=== PATIENT | male | born 1950 | race Two or more races ===

== ENCOUNTER 2016-04-05 00:44 | Inpatient (IN) | payer MEDICARE ==
[~2016-04-05] VITALS: Ht 203.2 cm; Wt 90.7 kg
[2016-04-05] VITALS (9 sets, daily range): BP systolic 126–163; BP diastolic 61–138
[~2016-04-05 00:44] MED LIST: ALBUTEROL SULF8.5 GM INH; ASPIR-LOW81 MG ORAL; AZITHROMYCIN250 MG ORAL; BISACODYL5 MG ORAL; LANTUS SOL100 UNIT/1 SUBQ; LEVEMIR100 UNIT/1 SUBQ; LIPITOR40 MG ORAL; LISINOPRIL10 MG ORAL; METOPROLOL TART25 MG ORAL; PROBIOTIC & AC1 EAC1 PO; PROCHLORPERAZINE5 MG ORAL; PROTONIX40 MG ORAL; ZESTRIL10 M1 ORAL
[2016-04-05] MEDS ORDERED: Ipratropium 0.02% Inh Soln 2.5ml UD HHN ONE (01:00)
[2016-04-05] MEDS ORDERED: Diltiazem 25mg/5ml IV ONE (01:00)
[2016-04-05] MEDS ORDERED: Albuterol ud Inhalation HHN ONE (01:00)
[2016-04-05] MEDS ORDERED: Solu-MEDROL 125mg Inj IVP ONE (01:00)
[2016-04-05 01:27] LABS: MEAN CORPUSCULAR HEMOGLOBIN 26.5 PG (27.0-31.0); MEAN CORPUSCULAR HGB CONC 31.4 G/DL (32.0-36.0); MEAN CORPUSCULAR VOLUME 84 FL (80-99); MEAN PLATELET VOLUME 9.9 FL (6.5-10.1); PLATELET COUNT 262 K/UL (150-450); RED BLOOD COUNT 5.38 M/UL (4.70-6.10); RED CELL DISTRIBUTION WIDTH 15.1 % (11.6-14.8); WHITE BLOOD COUNT 20.3 K/UL (4.8-10.8)
[2016-04-05 01:30] LABS: ABG ALLEN TEST POSITIVE; ABG BASE EXCESS -3.7; ABG PCO2 50.8 mmHg (35.0-45.0)
[2016-04-05 01:31] LABS: APPEARANCE,URINE CLEAR; KETONES,URINE NEGATIVE (NEGATIVE); LEUKOCYTE ESTERASE ,URINE NEGATIVE (NEGATIVE); NITRITE,URINE NEGATIVE (NEGATIVE); PH,URINE 6 (4.5-8.0); PROTEIN,URINE 3+ (NEGATIVE); UROBILINOGEN,URINE NORMAL MG/DL (0.0-1.0)
[2016-04-05 01:39] LABS: INR 1.1 (0.9-1.1)
[2016-04-05 01:44] LABS: ALBUMIN/GLOBULIN RATIO 1.1 (1.0-2.7); CALCIUM 9.7 mg/dL (8.6-10.2); CREATININE 1.9 mg/dL (0.7-1.2); GLOMERULAR FILTRATION RATE 35.8 mL/min (>60); TOTAL PROTEIN 8.5 g/dL (6.6-8.7); TROPONIN I < 0.30 ng/mL (<=0.30)
[2016-04-05 01:51] LABS: WBC,URINE 0-2 /HPF (0 - 0)
[2016-04-05 01:52] LABS: BACTERIA,URINE FEW /HPF; SQUAMOUS EPITHELIAL CELL,UR OCCASIONAL /LPF (NONE/OCC)
[2016-04-05 01:55] LABS: CKMB 7.2 ng/mL (< 6.7)
[2016-04-05 03:12] LABS: REFLEX LACTIC ACID YES OR NO YES
--- NOTE | 2016-04-05 03:43 | Emergency Room Report ---
History of Present Illness General Chief Complaint: Dyspnea/Respdistress Source: Patient, Family Member, EMS Present Illness HPI This is a 65-year-old male with a history of COPD and sarcoidosis. He also has history of blood pressure. He had recent back surgery couple weeks ago. He was doing well until tonight. He started having some vomiting and coughing. He developed severe soreness of breath. He was very diaphoretic and unable to breathe. His called 911. EMS said he was tripoding and blood pressure was severely high. He was very diaphoretic. He was given nitroglycerin and placed on a CPaP. She denies any chest pain. Allergies: Coded Allergies: Dust (Unverified Allergy, Mild, runny nose, 07/31/14) Patient History Past Medical History: see triage record, old chart reviewed, HTN, COPD, pneumonia Past Surgical History: other - Back surgery Pertinent Family History: none Social History: Denies: smoking Immunizations: other Reviewed Nursing Documentation: PMH: Agreed, PSxH: Agreed Nursing Documentation-PMH Hx Cardiac Problems: Yes Hx Hypertension: Yes Hx Pacemaker: No Hx Asthma: Yes Hx COPD: No Hx Diabetes: Yes Hx Cancer: Yes - TESTICULAR CA 1990 Hx Gastrointestinal Problems: No Hx Dialysis: No Hx Neurological Problems: No Hx Cerebrovascular Accident: No Hx Seizures: No Review of Systems Eye: Denies: blurred vision, eye pain ENT: Denies: ear pain, nose congestion, throat swelling Respiratory: Reports: shortness of breath, Denies: cough Cardiovascular: Denies: chest pain, palpitations Gastrointestinal: Denies: abdominal pain, diarrhea, nausea, vomiting Musculoskeletal: Denies: back pain, joint pain Skin: Denies: rash Neurological: Denies: headache, numbness Endocrine: Denies: increased thirst, increased urine Hematologic/Lymphatic: Denies: easy bruising All Other Systems: negative except mentioned in HPI Physical Exam Vital Signs Date Time Temp Pulse Resp B/P Pulse Ox O2 Delivery O2 Flow Rate FiO2 04/05/16 00:47 96.4 154 36 253/122 100 Bi-pap 04/05/16 00:55 30 04/05/16 02:11 2.0 vitals with tachycardia, hypertension Sp02 EP Interpretation: abnormal General Appearance: severe distress Head: normocephalic, atraumatic Eyes: bilateral eye EOMI, bilateral eye PERRL ENT: hearing grossly normal, normal pharynx Neck: full range of motion, supple, no meningismus Respiratory: chest non-tender, decreased breath sounds, rales, rhonchi, wheezing Cardiovascular #1: regular rate, rhythm, no murmur, tachycardia Gastrointestinal: normal bowel sounds, non tender, no mass, no organomegaly, no bruit, non-distended Musculoskeletal: back normal, normal range of motion Neurologic: alert, oriented x3 Psychiatric: mood/affect normal Skin: diaphoresis Procedures Critical Care Time Critical Care Time Critical care is mandated in this patient who presented with severe respiratory distress. Patient require my urgent intervention to attenuate the risks of respiratory failure which may lead to cardiovascular collapse and . Critical care time is 35 minutes excluding any reportable procedure. Critical care time included evaluation, multiple reevaluation, looking at old charts, interpreting laboratory and diagnostic data, discussing case with patient and family and consultants, and charting. Medical Decision Making Diagnostic Impression: Primary Impression: Acute respiratory failure with hypoxemia Additional Impressions: Pneumonia Qualified Codes: J18.9 - Pneumonia, unspecified organism Sepsis Qualified Codes: A41.9 - Sepsis, unspecified organism Acute kidney failure Qualified Codes: N17.9 - Acute kidney failure, unspecified Proteinuria Hypertensive emergency Supraventricular tachycardia ER Course Patient presents with severe respiratory distress. He was very hypertensive and tachycardic. Patient said he has a history of irregular heartbeat in the past. Clinical picture appear to be more rapid A. fib with CHF. His BNP is normal but there is elevation of LFTs. This may be secondary to right-sided heart failure. First set of troponin negative. Patient said that his creatinine recently was 1.3. He also has a history of sarcoidosis. He greatly improved and able to be weaned off on BiPAP. I will in place him on antibiotics. Patient said that his ankle swell up with Levaquin. Will from the fluoroquinolone. He recently finished a course of Augmentin. This was a week ago. Lab Results Impression labs with leukocytosis. EKG Diagnostic Results Rate: normal, tachycardiac Rhythm: other - Supraventricular tachycardia ST Segments: no acute changes Rhythm Strip Diag. Results EP Interpretation: yes Rate: 103 Rhythm: NSR, no PVC's, no ectopy Chest X-Ray Diagnostic Results EP Interpretation: Yes Findings: no effusion, no pneumothorax, other - Bilateral hilar infiltrate. So congestion. Number of Views: 1 Last Vital Signs Date Time Temp Pulse Resp B/P Pulse Ox O2 Delivery O2 Flow Rate FiO2 04/05/16 02:30 2.0 04/05/16 02:11 102 18 98 28 04/05/16 01:30 135/69 Bi-pap 04/05/16 00:55 97.6 Status: improved Disposition: ADMITTED INPATIENT Condition: Serious Referrals: NOT CHOSEN IPA/,REFERRING (PCP) KALEIGH DELEON M.D. Apr 05, 2016 03:43
[2016-04-05] MEDS ORDERED: Azithromycin 500 MG in NS 275 ML IV ONE (03:45)
[2016-04-05] MEDS ORDERED: Piperacillin/Tazobactam 4.5 GM in NS 110 ML IVPB ONE (03:45)
[2016-04-05] MEDS ORDERED: Zosyn 4.5gm inj ONE (03:53)
[2016-04-05] MEDS ORDERED: Azithromycin Inj IV ONE (04:40)
[2016-04-05] MEDS ORDERED: SINGULAIR10 MG ORAL (05:08)
[2016-04-05] MEDS ORDERED: LOSARTAN POTASS25 M1 PO (05:08)
[2016-04-05] MEDS ORDERED: OXYCODONE-ACET1 EAC3 ORAL (05:08)
[2016-04-05] MEDS ORDERED: PULMICORT0.5 MG/2 M IH (05:08)
[2016-04-05] MEDS ORDERED: AMLODIPINE BESYL5 MG (06:16)
[2016-04-05] MEDS ORDERED: Oxycodone/Acetaminophen 5-325 ORAL PRN (06:45)
[2016-04-05] MEDS ORDERED: Morphine Sulfate 2mg/ml Inj IVP PRN (06:45)
[2016-04-05] MEDS ORDERED: DuoNeb 0.5-3(2.5)mg/3ml neb HHN PRN (06:45)
[2016-04-05] MEDS ORDERED: Promethazine/Codeine 5ml UD ORAL PRN (06:45)
[2016-04-05] MEDS ORDERED: Nitroglycerin Subl 0.4mg tab (Bottle Of 25) SL PRN (06:45)
[2016-04-05] MEDS ORDERED: LORazepam Inj 2mg/ml 1ml IV PRN (06:45)
[2016-04-05] MEDS ORDERED: Miralax 17gm pkt ORAL PRN (07:30)
[2016-04-05 08:01] LABS: ANISOCYTOSIS 1+; BAND NEUTROPHILS % (MANUAL) 4 % (0-8); BASOPHILS % (MANUAL) 0 % (0-2); EOSINOPHILS % (MANUAL) 4 % (0-3); LYMPHOCYTES % (MANUAL) 20 % (20-45); NEUTROPHILS % (MANUAL) 63 % (45-75); PLATELET ESTIMATE ADEQUATE; PLATELET MORPHOLOGY NORMAL; TOTAL CELLS COUNTED 100
--- NOTE | 2016-04-05 08:42 | Diagnostic Imaging Report ---
Clinical Indication: DYSPNEA, history of COPD and acidosis, vomiting and coughing Technique: Spiral acquisitions obtained through the chest. No IV contrast utilized, referring physician request. Multiplanar reconstructions generated. Total dose length product 669 mGycm. CTDIvol(s) 16 mGy Comparison: None Findings:There is a 5 mm nodule in the inferior right upper lobe image 28 series 5. This demonstrates some peripheral calcification but is not completely calcified. There is a 5 mm nodule in the inferior right lower lobe, image 34 series 5, which abuts the minor fissure. There is mild generalized bronchial wall thickening. There is filling of the lumina of several of the distal lower lobe bronchi, particularly on the left. Reticulonodular opacities are seen in the bilateral lower lobes, left greater than right There is thickening of the interstitial septa inferiorly. 7 mm nodule in the inferior left lower lobe, image 52 of series 5. There is variant anatomy of a left middle lobe. No focal airspace consolidation. No effusions or congestion. No large masses. There is mild pulmonary hyperinflation The heart size is normal. No pericardial effusion. There is fullness of the bilateral pulmonary hilar regions. The extent to which this represents prominent pulmonary arteries versus enlarged lymph nodes is not possible to assess given the absence of IV contrast administration. There is mediastinal lymphadenopathy with multiple enlarged nodes, including a prevascular space node that measures 3 x 1.5 cm, and a paratracheal node which measures 2.7 a 2.4 cm. Included portions of the thyroid are unremarkable. No axillary or chest wall mass or adenopathy. The bones are unremarkable. The included upper abdominal anatomy demonstrates a right upper pole 4 cm renal cyst. There may be gallbladder wall thickening, although this is less striking than seen on prior abdomen CT of 08/09/2014 Impression: Multiple small pulmonary nodules. The largest of these measures 7 mm in the inferior left lower lobe. If patient is at high risk for lung carcinoma, followup CT scanning at 3, 9, and 24 months is recommended. If patient is at low risk, then additional 6-12 month followup is recommended, followed by 18 to 24 month followup. This is per the Fleischner guidelines. Extensive mediastinal lymphadenopathy. Nonspecific, neoplasm not excludable There is also fullness of the bilateral pulmonary luis, but in the absence of IV contrast it is impossible to differentiate whether this represents lymphadenopathy versus prominent pulmonary arteries Generalized pulmonary hyperinflation. Generalized mild bronchial wall thickening, likely related to stated clinical history of COPD Reticular basilar interstitial disease on the right, reticulonodular disease on the left. Filling of multiple bronchi, particularly on the left. These are nonspecific findings, possibly related to COPD with superimposed acute bronchitis, but the differential is broad, including acute infectious processes, acute or chronic noninfectious inflammatory processes. Correlate with clinical findings. Note that the included lung bases on prior chest CT of 08/09/2014 did demonstrate some interstitial septal thickening, but the basilar nodular opacities and endoluminal bronchial filling is new or increased since that study Negative for significant airspace infiltrate Normal variant anatomy of left middle lobe Gallbladder wall thickening. Significance uncertain, described on prior ultrasound and CT exams Incidental finding right upper pole renal cyst The CT scanner at [facility] is accredited by the [employer] and the scans are performed using protocols designed to limit radiation exposure to as low as reasonably achievable to attain images of sufficient resolution adequate for diagnostic evaluation.
[2016-04-05] MEDS: Aspirin EC 81mg tab ORAL SCH (08:56)
[2016-04-05] MEDS: Theophylline ER 100mg ORAL SCH ×2 (08:56→21:40)
[2016-04-05] MEDS: Heparin 5000 units/ml inj SUBQ SCH ×2 (08:58→21:49)
[2016-04-05] MEDS ORDERED: Metoprolol 25mg tab ORAL SCH (09:00)
--- NOTE | 2016-04-05 11:09 | Diagnostic Imaging Report ---
Indication: SOB Technique: One view of the chest Comparison: 08/09/2014 Findings: There is bilateral perihilar and basilar interstitial prominence, slightly more striking than on the previous exam, somewhat less striking than seen on subsequent chest CT. No focal airspace consolidation. Heart size is normal. Pleural spaces are clear. Impression: Nonspecific bilateral perihilar and basilar interstitial disease. Please refer to subsequent chest CT for more detailed analysis Negative for airspace disease or pleural fluid
[2016-04-05] MEDS: NovoLOG Insulin Flexpen SUBQ SCH ×3 (11:44→21:48)
[2016-04-05] MEDS ORDERED: Solu-MEDROL 125mg Inj IV SCH (12:00)
--- NOTE | 2016-04-05 14:45 | Cardiology Report ---
APPROVED REPORT EKG Measurement Heart [id number] [place] [id number] Sin[address] Mark[address] ST abnormality, possible inferior subendocardial injury Abnormal ECG
--- NOTE | 2016-04-05 15:08 | History and Physical ---
History of Present Illness General Date patient seen: Apr 05, 2016 Reason for Hospitalization: Dyspnea/Respdistress Present Illness HPI 65-year-old male with a history of htn, recent back surgery, sinusitis, COPD and sarcoidosis was in his usual state of good health when he started with vomiting and coughing. He developed severe soreness of breath. He was very diaphoretic and unable to breathe. His called 911. EMS said he was tripoding and blood pressure was severely high. He was very diaphoretic. He was given nitroglycerin and placed on a CPAP. Pt's sbp on presentation was 250. He received diuretics, steroids and respiratory treatment in ER and felt slightly better. He is admitted for further evaluation. Currently his Dyspnea had decreased and he is wheezing much less. Allergies: Coded Allergies: Dust (Unverified Allergy, Mild, runny nose, 07/31/14) LEVOFLOXACIN (Verified Allergy, Unknown, 04/05/16) METOCLOPRAMIDE (Verified Allergy, Unknown, 04/05/16) Medication History Scheduled Albuterol Sulfate* (Albuterol Sulfate Mdi*), 2 PUFF INH Q6H Aspirin* (Aspir-Low*), 81 MG ORAL DAILY, (Reported) Atorvastatin Calcium* (Lipitor*), 40 MG ORAL BEDTIME, (Reported) Bisacodyl* (Dulcolax*), 10 MG ORAL THREE TIMES A WEEK, (Reported) Insulin Glargine (Lantus), 0 SUBQ BEDTIME, (Reported) Lisinopril* (Zestril*), 5 MG ORAL DAILY Metoprolol Tartrate* (Metoprolol Tartrate*), 25 MG ORAL BID, (Reported) Montelukast Sodium* (Singulair*), 10 MG ORAL BEDTIME, (Reported) Pantoprazole* (Protonix*), 40 MG ORAL DAILY Prochlorperazine Maleate* (Compazine*), 5 MG ORAL Q6H Scheduled PRN Oxycodone Hcl/Acetaminophen 5-325* (Oxycodone-Acetaminophen 5-325*), 1 TAB ORAL Q4H PRN for For Pain, (Reported) Miscellaneous Medications Amlodipine Besylate* (Amlodipine Besylate*), 5, (Reported) Budesonide (Pulmicort), Unknown Dose IH, (Reported) Losartan Potassium (Losartan Potassium), 25 MG PO, (Reported) Patient History Healthcare decision maker Resuscitation status Full Code Advanced Directive on File Past Medical/Surgical History Past Medical/Surgical History: (1) Sarcoidosis (2) Asthma (3) HTN (hypertension) Review of Systems Respiratory: Reports: SANZ, shortness of breath, wheezing All Other Systems: negative except mentioned in HPI Physical Exam General Appearance: WD/WN Lines, tubes and drains: peripheral, central line HEENT: normocephalic, anicteric Neck: non-tender, normal alignment Respiratory/Chest: chest wall non-tender, expiratory wheezing Cardiovascular/Chest: normal peripheral pulses, normal rate Abdomen: normal bowel sounds, non tender Genitourinary/Rectal: normal genital exam, normal rectal exam Extremities: normal range of motion, non-tender Last 24 Hour Vital Signs Date Time Temp Pulse Resp B/P Pulse Ox O2 Delivery O2 Flow Rate FiO2 04/05/16 12:00 92 04/05/16 11:38 97.2 90 18 129/67 96 Nasal Cannula 2.0 04/05/16 09:15 108 22 Nasal Cannula 2.0 28 04/05/16 08:57 109 126/61 04/05/16 08:57 109 126/61 04/05/16 08:00 109 04/05/16 07:59 97.3 109 20 126/61 96 Nasal Cannula 2.0 04/05/16 05:25 98.0 87 17 143/71 100 Nasal Cannula 2.0 04/05/16 05:14 98.0 87 17 143/71 100 Nasal Cannula 2.0 04/05/16 04:00 96 22 150/73 100 Room Air 04/05/16 02:30 92 21 147/75 99 Room Air 04/05/16 02:30 2.0 04/05/16 02:11 102 18 98 2.0 28 04/05/16 01:30 82 22 135/69 100 Bi-pap 30 04/05/16 01:30 124 25 100 Bi-pap 30 04/05/16 01:04 125 38 99 Bi-pap 30 04/05/16 01:04 125 38 30 04/05/16 01:02 125 38 99 Facial 30 04/05/16 01:00 144 163/138 04/05/16 00:55 30 04/05/16 00:55 97.6 144 22 163/138 100 Bi-pap 30 04/05/16 00:55 144 22 Bi-pap 30 04/05/16 00:47 96.4 154 36 253/122 100 Bi-pap Intake and Output 04/04/16 04/05/16 19:00 07:00 Intake Total 600 ml Output Total 1400 ml Balance -800 ml IV Total 600 ml Output Urine Total 1400 ml # Voids 1 Laboratory Tests Test 04/05/16 01:00 04/05/16 01:20 04/05/16 03:50 White Blood Count 20.3 K/UL (4.8-10.8) H Red Blood Count 5.38 M/UL (4.70-6.10) Hemoglobin 14.3 G/DL (14.2-18.0) Hematocrit 45.4 % (42.0-52.0) Mean Corpuscular Volume 84 FL (80-99) Mean Corpuscular Hemoglobin 26.5 PG (27.0-31.0) L Mean Corpuscular Hemoglobin Concent 31.4 G/DL (32.0-36.0) L Red Cell Distribution Width 15.1 % (11.6-14.8) H Platelet Count 262 K/UL (150-450) Mean Platelet Volume 9.9 FL (6.5-10.1) Neutrophils (%) (Auto) % (45.0-75.0) Lymphocytes (%) (Auto) % (20.0-45.0) Monocytes (%) (Auto) % (1.0-10.0) Eosinophils (%) (Auto) % (0.0-3.0) Basophils (%) (Auto) % (0.0-2.0) Differential Total Cells Counted 100 Neutrophils % (Manual) 63 % (45-75) Lymphocytes % (Manual) 20 % (20-45) Monocytes % (Manual) 9 % (1-10) Eosinophils % (Manual) 4 % (0-3) H Basophils % (Manual) 0 % (0-2) Band Neutrophils 4 % (0-8) Platelet Estimate Adequate Platelet Morphology Normal Anisocytosis 1+ Prothrombin Time 11.0 SEC (9.30-11.50) Prothromb Time International Ratio 1.1 (0.9-1.1) Activated Partial Thromboplast Time 25 SEC (23-33) Sodium Level 140 mEQ/L (135-145) Potassium Level 4.0 mEQ/L (3.4-4.9) Chloride Level 96 mEQ/L (98-107) L Carbon Dioxide Level 25 mEQ/L (20-30) Anion Gap 19 (5-15) H Blood Urea Nitrogen 31 mg/dL (7-23) H Creatinine 1.9 mg/dL (0.7-1.2) H Estimat Glomerular Filtration Rate 35.8 mL/min (>60) Glucose Level 289 mg/dL (74-106) H Lactic Acid Level 2.00 mmol/L (0.66-2.22) 1.40 mmol/L (0.66-2.22) Calcium Level 9.7 mg/dL (8.6-10.2) Total Bilirubin 0.3 mg/dL (0.0-1.2) Aspartate Amino Transf (AST/SGOT) 48 U/L (5-40) H Alanine Aminotransferase (ALT/SGPT) 43 U/L (3-41) H Alkaline Phosphatase 135 U/L (40-129) H Total Creatine Kinase 194 U/L (38-174) H Creatine Kinase MB 7.2 ng/mL (< 6.7) H Creatine Kinase MB Relative Index 3.7 Troponin I < 0.30 ng/mL (<=0.30) Pro-B-Type Natriuretic Peptide 25 pg/mL (0-125) Total Protein 8.5 g/dL (6.6-8.7) Albumin 4.5 g/dL (3.5-5.2) Globulin 4.0 g/dL Albumin/Globulin Ratio 1.1 (1.0-2.7) Urine Color Yellow Urine Appearance Clear Urine pH 6 (4.5-8.0) Urine Specific [place] 1.015 (1.005-1.035) Urine Protein 3+ (NEGATIVE) H Urine Glucose (UA) 3+ (NEGATIVE) H Urine Ketones Negative (NEGATIVE) Urine Occult Blood 2+ (NEGATIVE) H Urine Nitrite Negative (NEGATIVE) Urine Bilirubin Negative (NEGATIVE) Urine Urobilinogen Normal MG/DL (0.0-1.0) Urine Leukocyte Esterase Negative (NEGATIVE) Urine RBC 2-4 /HPF (0 - 0) H Urine WBC 0-2 /HPF (0 - 0) Urine Squamous Epithelial Cells Occasional /LPF Urine Bacteria Few /HPF (NONE) Arterial Blood pH 7.282 (7.350-7.450) Arterial Blood Partial Pressure CO2 50.8 mmHg (35.0-45.0) H Arterial Blood Partial Pressure O2 106.7 mmHg (75.0-100.0) H Arterial Blood HCO3 23.4 mmol/L (22.0-26.0) Arterial Blood Oxygen Saturation 97.2 % (92.0-98.0) Arterial Blood Base Excess -3.7 Bobby Test Positive Urine Opiates Screen Negative (NEGATIVE) Urine Barbiturates Screen Negative (NEGATIVE) Phencyclidine (PCP) Screen Negative (NEGATIVE) Urine Amphetamines Screen Negative (NEGATIVE) Urine Benzodiazepines Screen Negative (NEGATIVE) Urine Cocaine Screen Negative (NEGATIVE) Urine Marijuana (THC) Screen Negative (NEGATIVE) Height (Feet): 6 Height (Inches): 8.00 Weight (Pounds): 200 Medications Current Medications Medications (Trade) Dose Ordered Sig/Nallely Route PRN Reason Start Time Stop Time Status Last Admin Dose Admin Acetaminophen (Tylenol) 650 mg Q4H PRN ORAL fever 04/05/16 06:45 05/05/16 06:44 Albuterol/ Ipratropium (DuoNeb 0.5-3(2.5)mg/3ml) 3 ml Q4H PRN HHN dyspnea 04/05/16 06:45 04/10/16 06:44 Amlodipine Besylate (Norvasc) 5 mg DAILY ORAL 04/05/16 09:00 05/05/16 08:59 04/05/16 08:57 Aspirin (Ecotrin) 81 mg DAILY ORAL 04/05/16 09:00 05/05/16 08:59 04/05/16 08:56 Atorvastatin Calcium (Lipitor) 40 mg BEDTIME ORAL 04/05/16 21:00 05/05/16 20:59 Clonidine HCl (Catapres) 0.1 mg Q4H PRN ORAL sbp more than 160 04/05/16 06:45 05/05/16 06:44 Dextrose (Dextrose 50%) STAT PRN IV Hypoglycemia 04/05/16 06:45 05/05/16 06:44 Heparin Sodium (Porcine) (Heparin 5000 units/ml) 5,000 units EVERY 12 HOURS SUBQ 04/05/16 09:00 05/05/16 08:59 04/05/16 08:58 Insulin Aspart (NovoLOG) BEFORE MEALS AND HS SUBQ 04/05/16 11:30 05/05/16 11:29 04/05/16 11:44 Lorazepam (Ativan 2mg/ml 1ml) 0.5 mg Q4H PRN IV For Anxiety 04/05/16 06:45 04/12/16 06:44 Methylprednisolone Sodium Succinate (Solu-MEDROL) 60 mg EVERY 6 HOURS IV 04/05/16 12:00 05/05/16 11:59 04/05/16 11:47 Metoprolol Tartrate (Lopressor) 25 mg BID ORAL 04/05/16 09:00 05/05/16 08:59 04/05/16 08:57 Morphine Sulfate (Morphine Sulfate) 2 mg Q4H PRN IVP severe pain 7-10 04/05/16 06:45 04/12/16 06:44 Nitroglycerin (Ntg) 0.4 mg Q5M X 3 DOSES PRN SL Prn Chest Pain 04/05/16 06:45 05/05/16 06:44 Ondansetron HCl (Zofran) 4 mg Q6H PRN IVP Nausea & Vomiting 04/05/16 06:45 05/05/16 06:44 Oxycodone/ Acetaminophen (Percocet 5-325) 1 tab Q4H PRN ORAL For Pain 04/05/16 06:45 04/12/16 06:44 Pantoprazole (Protonix) 40 mg DAILY ORAL 04/05/16 09:00 05/05/16 08:59 04/05/16 08:57 Polyethylene Glycol (Miralax) 17 gm DAILYPRN PRN ORAL Constipation 04/05/16 07:30 05/05/16 07:29 Promethazine HCl/ Codeine (Phenergan with Codeine) 5 ml Q6H PRN ORAL cough 04/05/16 06:45 05/05/16 06:44 Temazepam (Restoril) 15 mg HSPRN PRN ORAL Insomnia 04/05/16 06:45 04/12/16 06:44 Theophylline (Jd-Dur) 100 mg EVERY 12 HOURS ORAL 04/05/16 09:00 05/05/16 08:59 04/05/16 08:56 Assessment/Plan Problem List: (1) Acute respiratory failure ICD Codes: J96.00 - Acute respiratory failure, unspecified whether with hypoxia or hypercapnia SNOMED: 97188315 (2) Bronchitis ICD Codes: J40 - Bronchitis, not specified as acute or chronic SNOMED: 93544793 (3) HTN (hypertension) ICD Codes: I10 - Essential (primary) hypertension SNOMED: 55856227 (4) Asthma ICD Codes: J45.909 - Unspecified asthma, uncomplicated SNOMED: 230704094 (5) Hypertensive emergency ICD Codes: I16.1 - Hypertensive emergency SNOMED: 668571859234459 (6) ATN (acute tubular necrosis) ICD Codes: N17.0 - ATN (acute tubular necrosis) SNOMED: 85232451 (7) Sarcoidosis ICD Codes: D86.9 - Sarcoidosis, unspecified SNOMED: 19099891 Assessment/Plan IV steroids IV antibiotics check sputum echo cardio evaluation monitor BP. JOANIE HERRERA Apr 05, 2016 15:08
--- NOTE | 2016-04-05 17:23 | Cardiology Report ---
APPROVED REPORT EXAM: Two-dimensional and M-mode echocardiogram with Doppler and color Doppler. INDICATION LV function Technically difficult study due to poor acoustical windows. Mainly only sub-costal views obtained. M-mode measurements of left ventricle not obtainable due to cardiac position (angle) Normal left ventricular chamber size, systolic function and wall motion to extent visualized. Left ventricular ejection fraction estimated to be 65-70 %. Study quality precludes accurate assessment of regional wall motion. Mild left ventricular hypertrophy by 2-D. No evidence of pericardial effusion. All other cardiac chambers appear normal sizes. Focal aortic valve sclerosis with adequate cusp excursion. Thickened mitral valve leaflets with normal excursion. Mitral annulus and aortic root calcification. Normal pulmonic valve structure. Normal tricuspid valve structure. IVC at normal size with physiologic collapse. A color flow and spectral Doppler study was performed and revealed: Trace mitral regurgitation. Mitral diastolic velocities suggest reduced left ventricular relaxation c/w mild LV diastolic dysfunction (Grade I ). Trace tricuspid regurgitation. Tricuspid systolic velocities suggests peak right ventricular systolic pressure of 13 mmHg.
--- NOTE | 2016-04-05 17:55 | Cardiology Progress Note ---
Assessment/Plan Assessment/Plan profound htn respiratory insuf sarcodosis systemic cad hx of stent in d2 per pt (no chest pain, but left arm and shoulder pain ) dm htn asthma hs ot testicular cancer cri with an acute component profound sinus tachy probnp only 25 unlikey to have had diastolid failure has sig findign on chest ct may be related to sarcoid some finding arenew since 2015 echo normla wall motion no perfusion defect in 2015 here sinsu tachy has improved watch cr avoid diuretics pulm rxn repeat ekg adn trop [id number] Objective Last 24 Hour Vital Signs Date Time Temp Pulse Resp B/P Pulse Ox O2 Delivery O2 Flow Rate FiO2 04/05/16 17:14 105 22 98 Nasal Cannula 2.0 28 04/05/16 17:00 100 38 96 Nasal Cannula 2.0 28 04/05/16 12:00 92 04/05/16 11:38 97.2 90 18 129/67 96 Nasal Cannula 2.0 04/05/16 09:15 108 22 Nasal Cannula 2.0 28 04/05/16 08:57 109 126/61 04/05/16 08:57 109 126/61 04/05/16 08:00 109 04/05/16 07:59 97.3 109 20 126/61 96 Nasal Cannula 2.0 04/05/16 05:25 98.0 87 17 143/71 100 Nasal Cannula 2.0 04/05/16 05:14 98.0 87 17 143/71 100 Nasal Cannula 2.0 04/05/16 04:00 96 22 150/73 100 Room Air 04/05/16 02:30 92 21 147/75 99 Room Air 04/05/16 02:30 2.0 04/05/16 02:11 102 18 98 2.0 28 04/05/16 01:30 82 22 135/69 100 Bi-pap 30 04/05/16 01:30 124 25 100 Bi-pap 30 04/05/16 01:04 125 38 99 Bi-pap 30 04/05/16 01:04 125 38 30 04/05/16 01:02 125 38 99 Facial 30 04/05/16 01:00 144 163/138 04/05/16 00:55 30 04/05/16 00:55 97.6 144 22 163/138 100 Bi-pap 30 04/05/16 00:55 144 22 Bi-pap 30 04/05/16 00:47 96.4 154 36 253/122 100 Bi-pap Intake and Output 04/04/16 04/05/16 19:00 07:00 Intake Total 600 ml Output Total 1400 ml Balance -800 ml IV Total 600 ml Output Urine Total 1400 ml # Voids 1 Laboratory Tests Test 04/05/16 01:00 04/05/16 01:20 04/05/16 03:50 White Blood Count 20.3 K/UL (4.8-10.8) H Red Blood Count 5.38 M/UL (4.70-6.10) Hemoglobin 14.3 G/DL (14.2-18.0) Hematocrit 45.4 % (42.0-52.0) Mean Corpuscular Volume 84 FL (80-99) Mean Corpuscular Hemoglobin 26.5 PG (27.0-31.0) L Mean Corpuscular Hemoglobin Concent 31.4 G/DL (32.0-36.0) L Red Cell Distribution Width 15.1 % (11.6-14.8) H Platelet Count 262 K/UL (150-450) Mean Platelet Volume 9.9 FL (6.5-10.1) Neutrophils (%) (Auto) % (45.0-75.0) Lymphocytes (%) (Auto) % (20.0-45.0) Monocytes (%) (Auto) % (1.0-10.0) Eosinophils (%) (Auto) % (0.0-3.0) Basophils (%) (Auto) % (0.0-2.0) Differential Total Cells Counted 100 Neutrophils % (Manual) 63 % (45-75) Lymphocytes % (Manual) 20 % (20-45) Monocytes % (Manual) 9 % (1-10) Eosinophils % (Manual) 4 % (0-3) H Basophils % (Manual) 0 % (0-2) Band Neutrophils 4 % (0-8) Platelet Estimate Adequate Platelet Morphology Normal Anisocytosis 1+ Prothrombin Time 11.0 SEC (9.30-11.50) Prothromb Time International Ratio 1.1 (0.9-1.1) Activated Partial Thromboplast Time 25 SEC (23-33) Sodium Level 140 mEQ/L (135-145) Potassium Level 4.0 mEQ/L (3.4-4.9) Chloride Level 96 mEQ/L (98-107) L Carbon Dioxide Level 25 mEQ/L (20-30) Anion Gap 19 (5-15) H Blood Urea Nitrogen 31 mg/dL (7-23) H Creatinine 1.9 mg/dL (0.7-1.2) H Estimat Glomerular Filtration Rate 35.8 mL/min (>60) Glucose Level 289 mg/dL (74-106) H Lactic Acid Level 2.00 mmol/L (0.66-2.22) 1.40 mmol/L (0.66-2.22) Calcium Level 9.7 mg/dL (8.6-10.2) Total Bilirubin 0.3 mg/dL (0.0-1.2) Aspartate Amino Transf (AST/SGOT) 48 U/L (5-40) H Alanine Aminotransferase (ALT/SGPT) 43 U/L (3-41) H Alkaline Phosphatase 135 U/L (40-129) H Total Creatine Kinase 194 U/L (38-174) H Creatine Kinase MB 7.2 ng/mL (< 6.7) H Creatine Kinase MB Relative Index 3.7 Troponin I < 0.30 ng/mL (<=0.30) Pro-B-Type Natriuretic Peptide 25 pg/mL (0-125) Total Protein 8.5 g/dL (6.6-8.7) Albumin 4.5 g/dL (3.5-5.2) Globulin 4.0 g/dL Albumin/Globulin Ratio 1.1 (1.0-2.7) Urine Color Yellow Urine Appearance Clear Urine pH 6 (4.5-8.0) Urine Specific [place] 1.015 (1.005-1.035) Urine Protein 3+ (NEGATIVE) H Urine Glucose (UA) 3+ (NEGATIVE) H Urine Ketones Negative (NEGATIVE) Urine Occult Blood 2+ (NEGATIVE) H Urine Nitrite Negative (NEGATIVE) Urine Bilirubin Negative (NEGATIVE) Urine Urobilinogen Normal MG/DL (0.0-1.0) Urine Leukocyte Esterase Negative (NEGATIVE) Urine RBC 2-4 /HPF (0 - 0) H Urine WBC 0-2 /HPF (0 - 0) Urine Squamous Epithelial Cells Occasional /LPF Urine Bacteria Few /HPF (NONE) Arterial Blood pH 7.282 (7.350-7.450) Arterial Blood Partial Pressure CO2 50.8 mmHg (35.0-45.0) H Arterial Blood Partial Pressure O2 106.7 mmHg (75.0-100.0) H Arterial Blood HCO3 23.4 mmol/L (22.0-26.0) Arterial Blood Oxygen Saturation 97.2 % (92.0-98.0) Arterial Blood Base Excess -3.7 Bobby Test Positive Urine Opiates Screen Negative (NEGATIVE) Urine Barbiturates Screen Negative (NEGATIVE) Phencyclidine (PCP) Screen Negative (NEGATIVE) Urine Amphetamines Screen Negative (NEGATIVE) Urine Benzodiazepines Screen Negative (NEGATIVE) Urine Cocaine Screen Negative (NEGATIVE) Urine Marijuana (THC) Screen Negative (NEGATIVE) MORENA NORWOOD Apr 05, 2016 17:55
[2016-04-05] MEDS ORDERED: Solu-MEDROL 40mg Inj IVP SCH (21:00)
--- NOTE | 2016-04-05 21:39 | Consultation ---
DATE OF CONSULTATION: 04/05/2016 ADDENDUM: ASSESSMENT AND PLAN: 1. Hypertensive urgency with profound elevated blood pressure and symptoms suggestive of failure. 2. Profound degree of sinus tachycardia. 3. Sarcoidosis. 4. Pulmonary intraluminal filling. 5. Diabetes mellitus. 6. Hypertension. 7. Previous history of coronary artery disease. 8. Renal insufficiency history. 9. History of testicular cancer, status post resection. 10. Asthma with probable exacerbation. This patient has been admitted to the hospital. CT scan findings were significance somewhere changed from his prior CT scan in 2014. He does have a history of sarcoidosis. His blood pressure is much better, controlled at the present time. He still has some pulmonary findings that is difficult to tell how much is his findings are chronic and how much is new. His blood pressure is much better controlled. His shortness of breath has improved. His normal proBNP in light of the renal insufficiency is certainly goes against a heart failure as a symptom. He does have a history of coronary disease. He has never had chest pain with his coronary event, although he did have left arm and shoulder pain and previously he has not had experienced those symptoms at this time therefore doubt that is the coronary syndrome. His creatinine is up from 1.4 to 1.9. The patient should be continued on his blood pressure medications and adjustment in medications as become necessary for control of the blood pressure. Continue breathing treatments and treatment of his underlying pulmonary issues including infectious etiologies. I will follow the patient along with you. It is of note that the patient had perfusion imaging back in 2014 that showed no evidence of ischemia. Adam Mcclure M.D. DR: RAVI JOB#: [id number] CC:
--- NOTE | 2016-04-05 23:09 | Consultation ---
DATE OF CONSULTATION: 04/05/2016 REFERRING PHYSICIAN: Tata Donato M.D. REASON FOR REFERRAL: Shortness of breath, possible congestive heart failure. HISTORY OF PRESENT ILLNESS: This is a 65-year-old gentleman, who has history of multiple medical problems as delineated below. The patient does have a history of asthma and had use of inhalers. Has been waking up at night because of shortness of breath. He uses inhalers at times to go back to sleep. Yesterday, he started having symptoms during the day time, has a hard time walking around because of significant amount of shortness of breath and climbed up hill. Vomited on several occasions and had to open the doors, windows and go outside to get some fresh air, but he has remained short of breath despite using inhalers as it usually helps him as well as he is diaphoretic. He called the paramedics and paramedics brought him to the emergency room at [facility]. Paramedics found him to have to be in mild respiratory distress. Complained of shortness of breath at times for one hour. They gave him some albuterol and CPAP and the patient improved. He has noticed himself at home that his heart rate in excess of 130. He was noted to be 154 to 159 by the paramedics. No blood pressure documented by patient intake coordinator run sheet, but apparently he had significantly elevated blood pressure with blood pressures in the 250s range when he arrived here. He has been given treatment. He is improved much since prior to his admission. He never had any pain or pressure in his chest. He did not have any left arm or left neck pain as he has had with his prior myocardial event. He does use two pillows. He does have occasional dizziness and lightheadedness on standing which, he attributes to his blood pressure medications and occasional palpitations. PAST MEDICAL HISTORY: Positive for history of diabetes. He has high blood pressure. He had a history of heart attack, which he had a stent placed in the second diagonal and at that time was left shoulder, left arm, and left neck pain. No chest pain at that time. He has a history of testicular cancer that was resected. He has never had a stroke. No hepatitis or tuberculosis. He does have history of asthma. No emphysema. No history of ulcers. He does have chronic renal insufficiency. Creatinine 1.4. No liver problems. No thyroid problems. No anemia. He does have some arthritis. He has had sarcoidosis systemic involving the GI tract as well as other organ systems. No blood clots and no HIV or prostate problems. ALLERGIES: He is allergic to Levaquin and Reglan. He is intolerant of steroids because of hyperglycemia apparently. SOCIAL HISTORY: He used to use drugs as a young man, but not for many years. No alcohol. No tobacco. REVIEW OF SYSTEMS: Gastrointestinal: He has had nausea and vomiting. No diarrhea. No bloody stools or black tarry. Genitourinary: Negative. Pulmonary: Positive for coughing and wheezing. Constitutional: No fever, chills, or night sweats. Neurologic: Negative. PHYSICAL EXAMINATION: GENERAL: A tall middle-aged gentleman, in no apparent respiratory distress. HEENT: Unremarkable. NECK: Supple. No jugular venous distention. LUNGS: Decreased breath sounds noted bilaterally. No crackles are noted. CARDIAC: Regular rate and rhythm. No heaves, thrills, or gallops noted. ABDOMEN: Soft and nontender. Positive bowel sounds. EXTREMITIES: Trace edema, lower extremities bilaterally. NEUROLOGIC: He is awake, alert, responsive, and in no apparent respiratory distress. Laboratory And Diagnostic Data: White count of 20.2 with hemoglobin 14.3, and platelet count of 262,000. His blood gas, pH is 7.28, pCO2 51, pO2 of 107, bicarbonate 23, and O2 saturation 97%. His sodium is 140, potassium 4.0, chloride 96, bicarbonate 25, BUN 31, creatinine 1.9, and glucose of 289. Lactic acid level 2 and 1.4 subsequently. Calcium is 9.7. AST and ALT 48 and 43 and alkaline phosphatase is 135. CPK 194. Troponin less than 0.03. ProBNP is only 25. Albumin of 4.5. His INR was 1.0 and PTT of 25. He did have a CT scan of the chest performed, that CT scan showed multiple small pulmonary nodules noted. Extensive mediastinal lymphadenopathy. Nonspecific bilateral pulmonary luis. Generalized pulmonary hyperinflation. interstitial disease. He has had endoluminal bronchial fillings, which are new compared to his prior EKG and CT scan of July of 2014. No significant airspace infiltrates. Gallbladder wall thickening being noted. He did have an echocardiogram that was performed shows technically difficult study. Ejection fraction 65 to 70%. Mild diastolic relaxation abnormalities. Pulmonary artery systolic pressure is only estimated at 13. He had electrocardiogram that was performed showing, what appears to be, profound degree of sinus tachycardia and atrial tachycardia with 2:1 block is not completely excluded of the EKG with heart rates in the 153 range. Subsequently, his heart rate did improve with heart rate of 131, clearly sinus tachycardia on that EKG. ASSESSMENT AND PLAN: INCOMPLETE DICTATION Adam Mcclure M.D. DR: DANIEL JOB#: [id number] CC:
[2016-04-06] VITALS: BP 137/73
[2016-04-06 04:00] VITALS: BP 135/71
[2016-04-06] MEDS: NovoLOG Insulin Flexpen SUBQ SCH ×4 (06:35→21:42)
[2016-04-06] MEDS ORDERED: Promethazine/Codeine 5ml UD ORAL PRN (06:45)
[2016-04-06 07:01] LABS: MEAN CORPUSCULAR HEMOGLOBIN 26.6 PG (27.0-31.0); MEAN CORPUSCULAR HGB CONC 32.3 G/DL (32.0-36.0); MEAN CORPUSCULAR VOLUME 82 FL (80-99); MEAN PLATELET VOLUME 9.3 FL (6.5-10.1); PLATELET COUNT 229 K/UL (150-450); RED BLOOD COUNT 4.42 M/UL (4.70-6.10); RED CELL DISTRIBUTION WIDTH 14.9 % (11.6-14.8); WHITE BLOOD COUNT 14.8 K/UL (4.8-10.8)
[2016-04-06 07:33] LABS: TROPONIN I < 0.30 ng/mL (<=0.30)
[2016-04-06 07:36] LABS: ALBUMIN/GLOBULIN RATIO 0.9 (1.0-2.7); CALCIUM 8.6 mg/dL (8.6-10.2); CREATININE 1.6 mg/dL (0.7-1.2); GLOMERULAR FILTRATION RATE 43.6 mL/min (>60); POTASSIUM 4.7 mEQ/L (3.4-4.9); TOTAL PROTEIN 6.4 g/dL (6.6-8.7)
--- NOTE | 2016-04-06 08:38 | Pulmonology Progress Note ---
Assessment/Plan Assessment/Plan ASSESSMENT acute hypoxemic hypercapnic respiratory failure requiring BIPAP,- PNA vs bronchitis pulmonary nodules extensive mediastinal LAD CORBIN/ATN Hypertensive urgency with profound elevated blood pressure and asthma exacerbation Hx of sarcoidosis hx of CAD DM elevated LFT hx of testicular Ca PLAN OF CARE tele O2 HHN IV steroids and taper sputum cx if able empiric antibiotic CXR with nonspecific bilateral perihilar and basilar interstitial disease CT chest -multiple small pulmonary nodules, Extensive mediastinal lymphadenopathy-nonspecific, likely related to hx of sarcoidosis, old recommend repeat CT chest in 3 months ( higher risk) fup with CXR today cardio follows ECHO with preserved EF 65-70% and RVSP of 13 continue ASA, statin BP management with BB and CCB, optimize as needed DVT, GI prophylaxis creat trending down LFT down to normal keep on tele, still tachy case discussed and evaluated by supervising physician Subjective Allergies: Coded Allergies: Dust (Unverified Allergy, Mild, runny nose, 07/31/14) LEVOFLOXACIN (Verified Allergy, Unknown, 04/05/16) METOCLOPRAMIDE (Verified Allergy, Unknown, 04/05/16) Subjective leukocytosis trending down,afebrile creat down to 1.6 walked along the hallway and HR up to 130, reports being tired after brisk walk Objective Last 24 Hour Vital Signs Date Time Temp Pulse Resp B/P Pulse Ox O2 Delivery O2 Flow Rate FiO2 04/06/16 04:00 97.5 92 16 135/71 97 Nasal Cannula 2.0 04/06/16 04:00 96 04/06/16 00:00 92 04/06/16 00:00 98.2 93 16 137/73 95 Nasal Cannula 2.0 04/05/16 20:00 99.1 100 20 141/79 96 Nasal Cannula 2.0 04/05/16 19:40 108 22 Nasal Cannula 2.0 28 04/05/16 19:35 103 04/05/16 17:14 105 22 98 Nasal Cannula 2.0 28 04/05/16 17:00 100 38 96 Nasal Cannula 2.0 28 04/05/16 16:00 98.2 102 18 130/71 96 Nasal Cannula 2.0 04/05/16 16:00 93 04/05/16 12:00 92 04/05/16 11:38 97.2 90 18 129/67 96 Nasal Cannula 2.0 04/05/16 09:15 108 22 Nasal Cannula 2.0 28 04/05/16 08:57 109 126/61 04/05/16 08:57 109 126/61 Intake and Output 04/05/16 04/06/16 19:00 07:00 Intake Total 240 ml 240 ml Output Total 300 ml 300 ml Balance -60 ml -60 ml Intake Oral 240 ml 240 ml Output Urine Total 300 ml 300 ml # Voids 1 1 General Appearance: WD/WN, no acute distress HEENT: normocephalic, atraumatic, anicteric, mucous membranes moist Respiratory/Chest: lungs clear, no respiratory distress, no accessory muscle use Cardiovascular: normal peripheral pulses, normal rate, regular rhythm - SR on tele, after walking ST in 130 Abdomen: normal bowel sounds, soft, non tender, non distended Genitourinary: normal external genitalia Extremities: no edema Neurologic/Psychiatric: no motor/sensory deficits, alert, oriented x 3, responsive Lymphatic: no neck adenopathy Musculoskeletal: normal muscle bulk Laboratory Tests 04/06/16 06:51: White Blood Count 14.8H, Red Blood Count 4.42L, Hemoglobin 11.7L, Hematocrit 36.4L, Mean Corpuscular Volume 82, Mean Corpuscular Hemoglobin 26.6L, Mean Corpuscular Hemoglobin Concent 32.3, Red Cell Distribution Width 14.9H, Platelet Count 229, Mean Platelet Volume 9.3, Neutrophils (%) (Auto) , Lymphocytes (%) (Auto) , Monocytes (%) (Auto) , Eosinophils (%) (Auto) , Basophils (%) (Auto) , Neutrophils % (Manual) [Pending], Lymphocytes % (Manual) [Pending], Platelet Estimate [Pending], Platelet Morphology [Pending], Sodium Level 137, Potassium Level 4.7, Chloride Level 96L, Carbon Dioxide Level 25, Anion Gap 16H, Blood Urea Nitrogen 35H, Creatinine 1.6H, Estimat Glomerular Filtration Rate 43.6, Glucose Level 258H, Calcium Level 8.6, Total Bilirubin 0.4 , Aspartate Amino Transf (AST/SGOT) 26, Alanine Aminotransferase (ALT/SGPT) 26, Alkaline Phosphatase 79, Troponin I < 0.30, Pro-B-Type Natriuretic Peptide 347H , Total Protein 6.4L, Albumin 3.1L, Globulin 3.3, Albumin/Globulin Ratio 0.9L Current Medications Medications (Trade) Dose Ordered Sig/Nallely Route PRN Reason Start Time Stop Time Status Last Admin Dose Admin Acetaminophen (Tylenol) 650 mg Q4H PRN ORAL fever 04/05/16 06:45 05/05/16 06:44 Albuterol/ Ipratropium (DuoNeb 0.5-3(2.5)mg/3ml) 3 ml Q4H PRN HHN dyspnea 04/05/16 06:45 04/10/16 06:44 04/05/16 17:12 Amlodipine Besylate (Norvasc) 5 mg DAILY ORAL 04/05/16 09:00 05/05/16 08:59 04/05/16 08:57 Aspirin (Ecotrin) 81 mg DAILY ORAL 04/05/16 09:00 05/05/16 08:59 04/05/16 08:56 Atorvastatin Calcium (Lipitor) 40 mg BEDTIME ORAL 04/05/16 21:00 05/05/16 20:59 04/05/16 21:41 Clonidine HCl (Catapres) 0.1 mg Q4H PRN ORAL sbp more than 160 04/05/16 06:45 05/05/16 06:44 Dextrose (Dextrose 50%) STAT PRN IV Hypoglycemia 04/05/16 06:45 05/05/16 06:44 Heparin Sodium (Porcine) (Heparin 5000 units/ml) 5,000 units EVERY 12 HOURS SUBQ 04/05/16 09:00 05/05/16 08:59 04/05/16 21:49 Insulin Aspart (NovoLOG) BEFORE MEALS AND HS SUBQ 04/05/16 11:30 05/05/16 11:29 04/06/16 06:35 Lorazepam (Ativan 2mg/ml 1ml) 0.5 mg Q4H PRN IV For Anxiety 04/05/16 06:45 04/12/16 06:44 Methylprednisolone Sodium Succinate (Solu-MEDROL) 40 mg EVERY 12 HOURS IVP 04/05/16 21:00 05/05/16 20:59 04/05/16 21:40 Morphine Sulfate (Morphine Sulfate) 2 mg Q4H PRN IVP severe pain 7-10 04/05/16 06:45 04/12/16 06:44 Nitroglycerin (Ntg) 0.4 mg Q5M X 3 DOSES PRN SL Prn Chest Pain 04/05/16 06:45 05/05/16 06:44 Ondansetron HCl (Zofran) 4 mg Q6H PRN IVP Nausea & Vomiting 04/05/16 06:45 05/05/16 06:44 Oxycodone/ Acetaminophen (Percocet 5-325) 1 tab Q4H PRN ORAL For Pain 04/05/16 06:45 04/12/16 06:44 Pantoprazole (Protonix) 40 mg DAILY ORAL 04/05/16 09:00 05/05/16 08:59 04/05/16 08:57 Polyethylene Glycol (Miralax) 17 gm DAILYPRN PRN ORAL Constipation 04/05/16 07:30 05/05/16 07:29 Promethazine HCl/ Codeine (Phenergan with Codeine) 5 ml Q4H PRN ORAL For Cough 04/06/16 06:45 05/06/16 06:44 Temazepam (Restoril) 15 mg HSPRN PRN ORAL Insomnia 04/05/16 06:45 04/12/16 06:44 Theophylline (Jd-Dur) 100 mg EVERY 12 HOURS ORAL 04/05/16 09:00 05/05/16 08:59 04/05/16 21:40 [facility] [place] Re[place] NP Apr 06, 2016 08:38
[2016-04-06] MEDS: Aspirin EC 81mg tab ORAL SCH (09:11)
[2016-04-06] MEDS: Theophylline ER 100mg ORAL SCH ×2 (09:11→21:40)
[2016-04-06] MEDS: Heparin 5000 units/ml inj SUBQ SCH ×2 (09:15→21:41)
[2016-04-06 09:36] LABS: LYMPHOCYTES % (MANUAL) 12 % (20-45); NEUTROPHILS % (MANUAL) 86 % (45-75); TOTAL CELLS COUNTED 100
[2016-04-06 09:37] LABS: BAND NEUTROPHILS % (MANUAL) 0 % (0-8); BASOPHILS % (MANUAL) 0 % (0-2); EOSINOPHILS % (MANUAL) 0 % (0-3); PLATELET ESTIMATE ADEQUATE; PLATELET MORPHOLOGY NORMAL
[2016-04-06] MEDS: Cefepime HCl 1 GM in D5W 55 ML IVPB SCH ×2 (10:36→21:40)
--- NOTE | 2016-04-06 11:01 | Diagnostic Imaging Report ---
Indication: Dyspnea Comparison: 04/05/2016 A single view chest radiograph was obtained. Findings: No definite infiltrate or pulmonary vascular congestion identified. Edema seen on the prior day has improved and essentially resolved. The heart is normal in size. The aorta is mildly enlarged consistent with atherosclerotic vascular disease. The bones are osteopenic. Impression: No acute disease
[2016-04-06 12:15] VITALS: BP 145/77
[2016-04-06 16:00] VITALS: BP 140/77
--- NOTE | 2016-04-06 17:03 | Cardiology Progress Note ---
Assessment/Plan Assessment/Plan reviewed his ecgt and echo discussed with the patient, no evbidence of ACS Subjective Subjective the patient feels much better today less dyspnea denies chest pain Objective Last 24 Hour Vital Signs Date Time Temp Pulse Resp B/P Pulse Ox O2 Delivery O2 Flow Rate FiO2 04/06/16 12:15 98.3 90 21 145/77 99 Nasal Cannula 2.0 04/06/16 12:00 87 04/06/16 09:11 96 135/71 04/06/16 08:00 93 04/06/16 06:57 Nasal Cannula 2.0 04/06/16 06:56 97 Nasal Cannula 2.0 04/06/16 06:50 89 20 Nasal Cannula 2.0 04/06/16 04:00 97.5 92 16 135/71 97 Nasal Cannula 2.0 04/06/16 04:00 96 04/06/16 00:00 92 04/06/16 00:00 98.2 93 16 137/73 95 Nasal Cannula 2.0 04/05/16 20:00 99.1 100 20 141/79 96 Nasal Cannula 2.0 04/05/16 19:40 108 22 Nasal Cannula 2.0 28 04/05/16 19:35 103 04/05/16 17:14 105 22 98 Nasal Cannula 2.0 28 General Appearance: mild distress EENT: PERRL/EOMI Neck: no JVD Rhythm: NSR Cardiovascular: normal rate Respiratory/Chest: crackles/rales, rhonchi - bilaterally Abdomen: soft Extremities: no swelling Pulses: decreased: PT (R) 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 normal Intake and Output 04/05/16 04/06/16 19:00 07:00 Intake Total 240 ml 240 ml Output Total 300 ml 300 ml Balance -60 ml -60 ml Intake Oral 240 ml 240 ml Output Urine Total 300 ml 300 ml # Voids 1 1 Laboratory Tests Test 04/06/16 06:51 White Blood Count 14.8 K/UL (4.8-10.8) H Red Blood Count 4.42 M/UL (4.70-6.10) L Hemoglobin 11.7 G/DL (14.2-18.0) L Hematocrit 36.4 % (42.0-52.0) L Mean Corpuscular Volume 82 FL (80-99) Mean Corpuscular Hemoglobin 26.6 PG (27.0-31.0) L Mean Corpuscular Hemoglobin Concent 32.3 G/DL (32.0-36.0) Red Cell Distribution Width 14.9 % (11.6-14.8) H Platelet Count 229 K/UL (150-450) Mean Platelet Volume 9.3 FL (6.5-10.1) Neutrophils (%) (Auto) % (45.0-75.0) Lymphocytes (%) (Auto) % (20.0-45.0) Monocytes (%) (Auto) % (1.0-10.0) Eosinophils (%) (Auto) % (0.0-3.0) Basophils (%) (Auto) % (0.0-2.0) Differential Total Cells Counted 100 Neutrophils % (Manual) 86 % (45-75) H Lymphocytes % (Manual) 12 % (20-45) L Monocytes % (Manual) 2 % (1-10) Eosinophils % (Manual) 0 % (0-3) Basophils % (Manual) 0 % (0-2) Band Neutrophils 0 % (0-8) Platelet Estimate Adequate Platelet Morphology Normal Red Blood Cell Morphology Normal Sodium Level 137 mEQ/L (135-145) Potassium Level 4.7 mEQ/L (3.4-4.9) Chloride Level 96 mEQ/L (98-107) L Carbon Dioxide Level 25 mEQ/L (20-30) Anion Gap 16 (5-15) H Blood Urea Nitrogen 35 mg/dL (7-23) H Creatinine 1.6 mg/dL (0.7-1.2) H Estimat Glomerular Filtration Rate 43.6 mL/min (>60) Glucose Level 258 mg/dL (74-106) H Calcium Level 8.6 mg/dL (8.6-10.2) Total Bilirubin 0.4 mg/dL (0.0-1.2) Aspartate Amino Transf (AST/SGOT) 26 U/L (5-40) Alanine Aminotransferase (ALT/SGPT) 26 U/L (3-41) Alkaline Phosphatase 79 U/L (40-129) Troponin I < 0.30 ng/mL (<=0.30) Pro-B-Type Natriuretic Peptide 347 pg/mL (0-125) H Total Protein 6.4 g/dL (6.6-8.7) L Albumin 3.1 g/dL (3.5-5.2) L Globulin 3.3 g/dL Albumin/Globulin Ratio 0.9 (1.0-2.7) L Microbiology Date/Time Source Procedure Growth Status 04/05/16 01:00 Blood Blood Culture - Preliminary NO GROWTH AFTER 24 HOURS Resulted 04/05/16 00:45 Blood Blood Culture - Preliminary NO GROWTH AFTER 24 HOURS Resulted 04/05/16 10:00 Sputum Gram Stain - Final Resulted 04/05/16 10:00 Sputum Sputum Culture - Preliminary NORMAL UPPER RESPIRATORY KATELYNN AT 24 ... Resulted CLAU AGUILERA Apr 06, 2016 17:03
[2016-04-06 19:00] VITALS: BP 158/78
[2016-04-07] VITALS: BP 146/86
[2016-04-07 04:00] VITALS: BP 139/79
[2016-04-07 05:59] LABS: BASOPHILS % (AUTO) 0.7 % (0.0-2.0); EOSINOPHILS % (AUTO) 3.1 % (0.0-3.0); LYMPHOCYTES % (AUTO) 20.2 % (20.0-45.0); MEAN CORPUSCULAR HEMOGLOBIN 26.7 PG (27.0-31.0); MEAN CORPUSCULAR HGB CONC 32.2 G/DL (32.0-36.0); MEAN CORPUSCULAR VOLUME 83 FL (80-99); MEAN PLATELET VOLUME 9.7 FL (6.5-10.1); MONOCYTES % (AUTO) 7.5 % (1.0-10.0); NEUTROPHILS % (AUTO) 68.5 % (45.0-75.0); PLATELET COUNT 222 K/UL (150-450); RED BLOOD COUNT 4.57 M/UL (4.70-6.10); RED CELL DISTRIBUTION WIDTH 14.8 % (11.6-14.8); WHITE BLOOD COUNT 10.1 K/UL (4.8-10.8)
[2016-04-07 06:07] LABS: CALCIUM 8.9 mg/dL (8.6-10.2); CREATININE 1.4 mg/dL (0.7-1.2); GLOMERULAR FILTRATION RATE 50.9 mL/min (>60); POTASSIUM 4.5 mEQ/L (3.4-4.9)
[2016-04-07] MEDS: NovoLOG Insulin Flexpen SUBQ SCH ×4 (06:37→20:45)
[2016-04-07 08:00] VITALS: BP 143/83
[2016-04-07] MEDS: Aspirin EC 81mg tab ORAL SCH (08:18)
[2016-04-07] MEDS: Theophylline ER 100mg ORAL SCH ×2 (08:18→20:36)
[2016-04-07] MEDS: Cefepime HCl 1 GM in D5W 55 ML IVPB SCH ×2 (08:20→20:51)
[2016-04-07] MEDS: Heparin 5000 units/ml inj SUBQ SCH ×2 (08:23→20:55)
[2016-04-07] MEDS ORDERED: Solu-MEDROL 40mg Inj IVP SCH (09:00)
--- NOTE | 2016-04-07 10:50 | Pulmonology Progress Note ---
Assessment/Plan Assessment/Plan ASSESSMENT acute hypoxemic hypercapnic respiratory failure requiring BIPAP,- PNA vs bronchitis pulmonary nodules extensive mediastinal LAD CORBIN/ATN ( element of prerenal) on CRI ( 2 to diabetic nephropathy) Hypertensive urgency with profound elevated blood pressure and asthma exacerbation Hx of sarcoidosis hx of CAD DM elevated LFT hx of testicular Ca PLAN OF CARE tele O2 HHN taper IV steroids sputum cx if able empiric antibiotic CXR with nonspecific bilateral perihilar and basilar interstitial disease CT chest -multiple small pulmonary nodules, Extensive mediastinal lymphadenopathy-nonspecific, likely related to hx of sarcoidosis, old recommend repeat CT chest in 3 months ( higher risk) fup CXR 04/06 - no acute disease cardio follows ECHO with preserved EF 65-70% and RVSP of 13 continue ASA, statin BP management with BB and CCB, optimize as needed BS management with SS of insulin DVT, GI prophylaxis creat trending down, likely ATN on CRI 2 to diabetic nephropathy nephro follows LFT down to normal transfer to [place] if ok with cardio dc plan soon case discussed and evaluated by supervising physician Subjective Allergies: Coded Allergies: Dust (Unverified Allergy, Mild, runny nose, 07/31/14) LEVOFLOXACIN (Verified Allergy, Unknown, 04/05/16) METOCLOPRAMIDE (Verified Allergy, Unknown, 04/05/16) Subjective leukocytosis t resolved, afebrile creat down to 1.4 tired, did not sleep at night denies chest pain, SOB Objective Last 24 Hour Vital Signs Date Time Temp Pulse Resp B/P Pulse Ox O2 Delivery O2 Flow Rate FiO2 04/07/16 08:19 88 143/83 04/07/16 08:00 103 04/07/16 08:00 98.1 88 18 143/83 98 Nasal Cannula 2.0 04/07/16 04:00 97.8 81 19 139/79 99 Nasal Cannula 2.0 04/07/16 04:00 90 04/07/16 00:00 98.1 94 20 146/86 97 Nasal Cannula 2.0 04/06/16 23:44 91 04/06/16 20:00 92 04/06/16 19:18 99 Nasal Cannula 2.0 28 04/06/16 19:18 Nasal Cannula 2.0 28 04/06/16 19:18 90 20 Nasal Cannula 2.0 04/06/16 19:00 96.7 91 20 158/78 99 Nasal Cannula 2.0 04/06/16 16:00 88 04/06/16 16:00 97.7 86 18 140/77 100 Nasal Cannula 2.0 04/06/16 12:15 98.3 90 21 145/77 99 Nasal Cannula 2.0 04/06/16 12:00 87 Intake and Output 04/06/16 04/07/16 19:00 07:00 Intake Total 590 ml 900 ml Balance 590 ml 900 ml Intake Oral 480 ml 900 ml IV Total 110 ml # Voids 2 6 Objective General Appearance: WD/WN, no acute distress HEENT: normocephalic, atraumatic, anicteric, mucous membranes moist Respiratory/Chest: lungs clear, no respiratory distress, no accessory muscle use Cardiovascular: normal peripheral pulses, normal rate, regular rhythm - SR on tele, after walking ST in 130 Abdomen: normal bowel sounds, soft, non tender, non distended Genitourinary: normal external genitalia Extremities: no edema Neurologic/Psychiatric: no motor/sensory deficits, alert, oriented x 3, responsive Lymphatic: no neck adenopathy Musculoskeletal: normal muscle bulk Microbiology Date/Time Source Procedure Growth Status 04/05/16 01:00 Blood Blood Culture - Preliminary NO GROWTH AFTER 48 HOURS Resulted 04/05/16 00:45 Blood Blood Culture - Preliminary NO GROWTH AFTER 48 HOURS Resulted 04/05/16 10:00 Sputum Gram Stain - Final Resulted 04/05/16 10:00 Sputum Sputum Culture - Preliminary NORMAL UPPER RESPIRATORY KATELYNN AT 24 ... Resulted Laboratory Tests 04/07/16 04:50: White Blood Count 10.1, Red Blood Count 4.57L, Hemoglobin 12.2L, Hematocrit 37.8L, Mean Corpuscular Volume 83, Mean Corpuscular Hemoglobin 26.7L, Mean Corpuscular Hemoglobin Concent 32.2, Red Cell Distribution Width 14.8, Platelet Count 222, Mean Platelet Volume 9.7, Neutrophils (%) (Auto) 68.5, Lymphocytes (% ) (Auto) 20.2, Monocytes (%) (Auto) 7.5, Eosinophils (%) (Auto) 3.1H, Basophils (%) (Auto) 0.7, Sodium Level 138, Potassium Level 4.5, Chloride Level 98, Carbon Dioxide Level 28, Anion Gap 12, Blood Urea Nitrogen 29H, Creatinine 1.4H , Estimat Glomerular Filtration Rate 50.9, Glucose Level 212H, Calcium Level 8.9 Current Medications Medications (Trade) Dose Ordered Sig/Nallely Route PRN Reason Start Time Stop Time Status Last Admin Dose Admin Acetaminophen (Tylenol) 650 mg Q4H PRN ORAL fever 04/05/16 06:45 05/05/16 06:44 Albuterol/ Ipratropium (DuoNeb 0.5-3(2.5)mg/3ml) 3 ml Q4H PRN HHN dyspnea 04/05/16 06:45 04/10/16 06:44 04/05/16 17:12 Amlodipine Besylate (Norvasc) 5 mg DAILY ORAL 04/05/16 09:00 05/05/16 08:59 04/07/16 08:19 Aspirin (Ecotrin) 81 mg DAILY ORAL 04/05/16 09:00 05/05/16 08:59 04/07/16 08:18 Atorvastatin Calcium (Lipitor) 40 mg BEDTIME ORAL 04/05/16 21:00 05/05/16 20:59 04/06/16 21:40 Cefepime HCl/ Dextrose (Maxipime/D5W) 55 ml @ 110 mls/hr EVERY 12 HOURS IVPB 04/06/16 10:30 04/13/16 10:29 04/07/16 08:20 Cetirizine HCl (ZyrTEC) 10 mg DAILY ORAL 04/07/16 09:00 05/07/16 08:59 04/07/16 08:18 Clonidine HCl (Catapres) 0.1 mg Q4H PRN ORAL sbp more than 160 04/05/16 06:45 05/05/16 06:44 Dextrose (Dextrose 50%) STAT PRN IV Hypoglycemia 04/05/16 06:45 05/05/16 06:44 Heparin Sodium (Porcine) (Heparin 5000 units/ml) 5,000 units EVERY 12 HOURS SUBQ 04/05/16 09:00 05/05/16 08:59 04/07/16 08:23 Insulin Aspart (NovoLOG) BEFORE MEALS AND HS SUBQ 04/05/16 11:30 05/05/16 11:29 04/07/16 06:37 Lorazepam (Ativan 2mg/ml 1ml) 0.5 mg Q4H PRN IV For Anxiety 04/05/16 06:45 04/12/16 06:44 Methylprednisolone Sodium Succinate 40 mg 40 mg DAILY IVP 04/07/16 09:00 05/07/16 08:59 04/07/16 08:20 Morphine Sulfate (Morphine Sulfate) 2 mg Q4H PRN IVP severe pain 7-10 04/05/16 06:45 04/12/16 06:44 Nitroglycerin (Ntg) 0.4 mg Q5M X 3 DOSES PRN SL Prn Chest Pain 04/05/16 06:45 05/05/16 06:44 Ondansetron HCl (Zofran) 4 mg Q6H PRN IVP Nausea & Vomiting 04/05/16 06:45 05/05/16 06:44 Oxycodone/ Acetaminophen (Percocet 5-325) 1 tab Q4H PRN ORAL For Pain 04/05/16 06:45 04/12/16 06:44 Pantoprazole (Protonix) 40 mg DAILY ORAL 04/05/16 09:00 05/05/16 08:59 04/07/16 08:18 Polyethylene Glycol (Miralax) 17 gm DAILYPRN PRN ORAL Constipation 04/05/16 07:30 05/05/16 07:29 04/07/16 08:32 Promethazine HCl/ Codeine (Phenergan with Codeine) 5 ml Q4H PRN ORAL For Cough 04/06/16 06:45 05/06/16 06:44 Temazepam (Restoril) 15 mg HSPRN PRN ORAL Insomnia 04/05/16 06:45 04/12/16 06:44 Theophylline (Jd-Dur) 100 mg EVERY 12 HOURS ORAL 04/05/16 09:00 05/05/16 08:59 04/07/16 08:18 R[facility] RodriguezMount Vernon HospitalJuliet Reilly NP Apr 07, 2016 10:50
[2016-04-07 11:43] VITALS: BP 134/85
--- NOTE | 2016-04-07 12:59 | Consultation ---
Consult Note Consult Note asked to eval for renal failure This is a 65-year-old male with a history of COPD and sarcoidosis. He also has history of blood pressure. He had recent back surgery couple weeks ago. He was doing well until tonight. He started having some vomiting and coughing. He developed severe soreness of breath. He was very diaphoretic and unable to breathe. His called 911. EMS said he was tripoding and blood pressure was severely high. He was very diaphoretic. He was given nitroglycerin and placed on a CPaP. She denies any chest pain. Past Medical History: see triage record, old chart reviewed, HTN, COPD, pneumonia Past Surgical History: other - Back surgery Coded Allergies: Dust (Unverified Allergy, Mild, runny nose, 07/31/14) LEVOFLOXACIN (Verified Allergy, Unknown, 04/05/16) METOCLOPRAMIDE (Verified Allergy, Unknown, 04/05/16) Hx Cardiac Problems: Yes Hx Hypertension: Yes Hx Pacemaker: No Hx Asthma: Yes Hx Diabetes: Yes Hx Cancer: Yes - TESTICULAR CA 1990 patient examined- interviewed- data reviewed Assessment/Plan Renal: Acute renal failure- Pre renal superimposed on renal- Cr lowering 1.9 to 1.4 Hypertensive urgency with profound elevated blood pressure- h/o DM Other: acute hypoxemic hypercapnic respiratory failure requiring BIPAP,- PNA vs bronchitis pulmonary nodules extensive mediastinal LAD asthma exacerbation Hx of sarcoidosis hx of CAD elevated LFT hx of testicular Ca Plan: Slow hydrate- Monitor renal parameters- Avoid nephrotoxics- Optimize pulmonary status- Taper steroids- LAUREANO SORIANO Apr 07, 2016 12:59
[2016-04-07 16:00] VITALS: BP 126/76
--- NOTE | 2016-04-07 16:13 | Cardiology Progress Note ---
Assessment/Plan Assessment/Plan reviewed his ecg and echo discussed with the patient, no evidence of ACS Subjective Subjective tdoing better still has cough dyspnea is much better no chest pain Objective Last 24 Hour Vital Signs Date Time Temp Pulse Resp B/P Pulse Ox O2 Delivery O2 Flow Rate FiO2 04/07/16 12:00 94 04/07/16 11:43 97.7 94 19 134/85 98 Nasal Cannula 2.0 04/07/16 08:19 88 143/83 04/07/16 08:00 103 04/07/16 08:00 98.1 88 18 143/83 98 Nasal Cannula 2.0 04/07/16 07:05 Nasal Cannula 2.0 28 04/07/16 07:05 99 Nasal Cannula 2.0 28 04/07/16 07:05 94 20 Nasal Cannula 2.0 28 04/07/16 04:00 97.8 81 19 139/79 99 Nasal Cannula 2.0 04/07/16 04:00 90 04/07/16 00:00 98.1 94 20 146/86 97 Nasal Cannula 2.0 04/06/16 23:44 91 04/06/16 20:00 92 04/06/16 19:18 99 Nasal Cannula 2.0 28 04/06/16 19:18 Nasal Cannula 2.0 28 04/06/16 19:18 90 20 Nasal Cannula 2.0 04/06/16 19:00 96.7 91 20 158/78 99 Nasal Cannula 2.0 General Appearance: mild distress EENT: PERRL/EOMI Neck: supple, no JVD Rhythm: NSR Cardiovascular: normal rate Respiratory/Chest: rhonchi - bilaterally Abdomen: soft Extremities: non-tender, no swelling Intake and Output 04/06/16 04/07/16 19:00 07:00 Intake Total 590 ml 900 ml Balance 590 ml 900 ml Intake Oral 480 ml 900 ml IV Total 110 ml # Voids 2 6 Laboratory Tests Test 04/07/16 04:50 04/07/16 15:30 White Blood Count 10.1 K/UL (4.8-10.8) Red Blood Count 4.57 M/UL (4.70-6.10) L Hemoglobin 12.2 G/DL (14.2-18.0) L Hematocrit 37.8 % (42.0-52.0) L Mean Corpuscular Volume 83 FL (80-99) Mean Corpuscular Hemoglobin 26.7 PG (27.0-31.0) L Mean Corpuscular Hemoglobin Concent 32.2 G/DL (32.0-36.0) Red Cell Distribution Width 14.8 % (11.6-14.8) Platelet Count 222 K/UL (150-450) Mean Platelet Volume 9.7 FL (6.5-10.1) Neutrophils (%) (Auto) 68.5 % (45.0-75.0) Lymphocytes (%) (Auto) 20.2 % (20.0-45.0) Monocytes (%) (Auto) 7.5 % (1.0-10.0) Eosinophils (%) (Auto) 3.1 % (0.0-3.0) H Basophils (%) (Auto) 0.7 % (0.0-2.0) Sodium Level 138 mEQ/L (135-145) Potassium Level 4.5 mEQ/L (3.4-4.9) Chloride Level 98 mEQ/L (98-107) Carbon Dioxide Level 28 mEQ/L (20-30) Anion Gap 12 (5-15) Blood Urea Nitrogen 29 mg/dL (7-23) H Creatinine 1.4 mg/dL (0.7-1.2) H Estimat Glomerular Filtration Rate 50.9 mL/min (>60) Glucose Level 212 mg/dL (74-106) H Calcium Level 8.9 mg/dL (8.6-10.2) Urine Eosinophils Pending Urine Random Sodium Pending Microbiology Date/Time Source Procedure Growth Status 04/05/16 01:00 Blood Blood Culture - Preliminary NO GROWTH AFTER 48 HOURS Resulted 04/05/16 00:45 Blood Blood Culture - Preliminary NO GROWTH AFTER 48 HOURS Resulted 04/05/16 10:00 Sputum Gram Stain - Final Complete 04/05/16 10:00 Sputum Sputum Culture - Final NORMAL UPPER RESPIRATORY KATELYNN PRESENT Complete CLAU AGUILERA Apr 07, 2016 16:13
[2016-04-07] MEDS: DuoNeb 0.5-3(2.5)mg/3ml neb HHN SCH ×2 (19:41→23:07)
[2016-04-07 20:00] VITALS: BP 121/68
[2016-04-08] MEDS: DuoNeb 0.5-3(2.5)mg/3ml neb HHN SCH ×4 (02:22→15:58)
[2016-04-08 04:30] VITALS: BP 142/81
[2016-04-08 06:02] VITALS: BP 142/81
[2016-04-08] MEDS: NovoLOG Insulin Flexpen SUBQ SCH ×3 (06:09→17:17)
[2016-04-08 07:06] LABS: BASOPHILS % (AUTO) 1.2 % (0.0-2.0); EOSINOPHILS % (AUTO) 3.6 % (0.0-3.0); LYMPHOCYTES % (AUTO) 21.6 % (20.0-45.0); MEAN CORPUSCULAR HEMOGLOBIN 26.9 PG (27.0-31.0); MEAN CORPUSCULAR HGB CONC 32.4 G/DL (32.0-36.0); MEAN CORPUSCULAR VOLUME 83 FL (80-99); MEAN PLATELET VOLUME 9.8 FL (6.5-10.1); MONOCYTES % (AUTO) 8.2 % (1.0-10.0); NEUTROPHILS % (AUTO) 65.4 % (45.0-75.0); PLATELET COUNT 214 K/UL (150-450); RED BLOOD COUNT 4.54 M/UL (4.70-6.10); RED CELL DISTRIBUTION WIDTH 14.8 % (11.6-14.8)
[2016-04-08 07:14] LABS: HEMOGLOBIN A1C 9.3 % (< 6.0)
[2016-04-08 07:31] LABS: CHOLESTEROL/HDL RATIO 2.6 (3.3-4.4); CREATININE 1.6 mg/dL (0.7-1.2); CRP QUANT 1.2 mg/dL (< 0.5); GLOMERULAR FILTRATION RATE 43.6 mL/min (>60); MAGNESIUM 1.9 mg/dL (1.7-2.5); PHOSPHORUS 3.1 mg/dL (2.5-4.8); POTASSIUM 4.6 mEQ/L (3.4-4.9); TOTAL PROTEIN 6.6 g/dL (6.6-8.7); URIC ACID 5.1 mg/dL (3.0-7.5)
[2016-04-08 07:37] LABS: THYROID STIMULATING HORMONE 2.06 uIU/mL (0.300-4.500)
[2016-04-08 08:26] VITALS: BP 135/72
[2016-04-08] MEDS: Aspirin EC 81mg tab ORAL SCH (08:58)
[2016-04-08] MEDS: Cefepime HCl 1 GM in D5W 55 ML IVPB SCH (08:59)
[2016-04-08] MEDS: Theophylline ER 100mg ORAL SCH (08:59)
[2016-04-08] MEDS ORDERED: Solu-MEDROL 40mg Inj IVP SCH (09:00)
[2016-04-08] MEDS: Heparin 5000 units/ml inj SUBQ SCH (09:06)
[2016-04-08 12:39] VITALS: BP 147/75
--- NOTE | 2016-04-08 15:13 | General Progress Note ---
Assessment/Plan Status: stable, other - clinically improved Assessment/Plan Status: Acute renal failure- Pre renal superimposed on renal- Cr lowering 1.9 to 1.4 again up to 1.6 Hypertensive urgency with profound elevated blood pressure- h/o DM Other: acute hypoxemic hypercapnic respiratory failure requiring BIPAP,- PNA vs bronchitis pulmonary nodules extensive mediastinal LAD asthma exacerbation Hx of sarcoidosis hx of CAD elevated LFT hx of testicular Ca Plan: Slow hydrate- Monitor renal parameters- Avoid nephrotoxics- Optimize pulmonary status- Taper steroids- Subjective ROS Limited/Unobtainable: No Constitutional: Reports: malaise Allergies: Coded Allergies: Dust (Unverified Allergy, Mild, runny nose, 07/31/14) LEVOFLOXACIN (Verified Allergy, Unknown, 04/05/16) METOCLOPRAMIDE (Verified Allergy, Unknown, 04/05/16) Objective Last 24 Hour Vital Signs Date Time Temp Pulse Resp B/P Pulse Ox O2 Delivery O2 Flow Rate FiO2 04/08/16 12:39 97.0 89 18 147/75 100 Nasal Cannula 2.0 04/08/16 12:00 84 04/08/16 11:29 Room Air 04/08/16 11:29 Room Air 04/08/16 08:59 77 135/72 04/08/16 08:26 97.2 77 18 135/72 99 Nasal Cannula 2.0 04/08/16 08:00 84 04/08/16 07:21 Nasal Cannula 2.0 28 04/08/16 07:21 84 20 100 Nasal Cannula 2.0 28 04/08/16 07:12 78 20 100 Nasal Cannula 2.0 28 04/08/16 07:10 100 Nasal Cannula 2.0 28 04/08/16 06:02 96.8 78 20 142/81 97 Room Air 04/08/16 04:30 96.8 78 20 142/81 97 Room Air 04/08/16 03:52 79 04/08/16 02:24 Nasal Cannula 04/08/16 02:23 Nasal Cannula 04/07/16 23:45 92 04/07/16 23:15 99 22 100 Nasal Cannula 2.0 28 04/07/16 23:07 99 24 97 Nasal Cannula 2.0 28 04/07/16 20:00 98.1 87 18 121/68 100 Nasal Cannula 2.0 04/07/16 19:52 86 04/07/16 19:49 98 22 100 Nasal Cannula 2.0 28 04/07/16 19:44 Nasal Cannula 2.0 28 04/07/16 19:43 98 Nasal Cannula 2.0 28 04/07/16 19:41 96 24 98 Nasal Cannula 2.0 28 04/07/16 16:00 96.8 92 20 126/76 Room Air 04/07/16 16:00 92 Intake and Output 04/07/16 04/08/16 19:00 07:00 Intake Total 790 ml 55 ml Output Total 700 ml 1135 ml Balance 90 ml -1080 ml Intake Oral 680 ml IV Total 110 ml 55 ml Output Urine Total 700 ml 1135 ml # Voids 2 Laboratory Tests 04/07/16 15:30: Urine Eosinophils None seen, Urine Random Sodium 75 04/08/16 06:30: White Blood Count 8.0, Red Blood Count 4.54L, Hemoglobin 12.2L, Hematocrit 37.7L , Mean Corpuscular Volume 83, Mean Corpuscular Hemoglobin 26.9L, Mean Corpuscular Hemoglobin Concent 32.4, Red Cell Distribution Width 14.8, Platelet Count 214, Mean Platelet Volume 9.8, Neutrophils (%) (Auto) 65.4, Lymphocytes (% ) (Auto) 21.6, Monocytes (%) (Auto) 8.2, Eosinophils (%) (Auto) 3.6H, Basophils (%) (Auto) 1.2, Sodium Level 136, Potassium Level 4.6, Chloride Level 95L, Carbon Dioxide Level 32H, Anion Gap 9, Blood Urea Nitrogen 26H, Creatinine 1.6H , Estimat Glomerular Filtration Rate 43.6, Glucose Level 248H, Hemoglobin A1c 9.3H, Uric Acid 5.1, Calcium Level 9.0, Phosphorus Level 3.1, Magnesium Level 1.9, Total Bilirubin 0.5, Gamma Glutamyl Transpeptidase 61, Aspartate Amino Transf (AST/SGOT) 17, Alanine Aminotransferase (ALT/SGPT) 22, Alkaline Phosphatase 82, C-Reactive Protein, Quantitative 1.2H, Pro-B-Type Natriuretic Peptide 72, Total Protein 6.6, Albumin 3.4L, Globulin 3.2, Albumin/Globulin Ratio 1.0, Triglycerides Level 79, Cholesterol Level 157, LDL Cholesterol 81, HDL Cholesterol 60, Cholesterol/HDL Ratio 2.6L, Thyroid Stimulating Hormone (TSH ) 2.060 Height (Feet): 6 Height (Inches): 8.00 Weight (Pounds): 200 General Appearance: other Cardiovascular: normal rate Respiratory/Chest: decreased breath sounds Objective other physical exam not changed LAUREANO SORIANO Apr 08, 2016 15:13
[2016-04-08 16:00] VITALS: BP 145/85
--- NOTE | 2016-04-08 16:06 | Pulmonology Progress Note ---
Assessment/Plan Problems: (1) Acute respiratory failure (2) Bronchitis (3) HTN (hypertension) (4) Asthma (5) Hypertensive emergency (6) ATN (acute tubular necrosis) (7) Sarcoidosis Assessment/Plan improving taper steroids dc home with nebulizer sputum negative d/w Dr. Nolan pts primary Subjective Interval Events: feeling much better Allergies: Coded Allergies: Dust (Unverified Allergy, Mild, runny nose, 07/31/14) LEVOFLOXACIN (Verified Allergy, Unknown, 04/05/16) METOCLOPRAMIDE (Verified Allergy, Unknown, 04/05/16) Objective Last 24 Hour Vital Signs Date Time Temp Pulse Resp B/P Pulse Ox O2 Delivery O2 Flow Rate FiO2 04/08/16 15:58 81 20 100 Nasal Cannula 2.0 28 04/08/16 15:49 74 20 100 Nasal Cannula 2.0 28 04/08/16 12:39 97.0 89 18 147/75 100 Nasal Cannula 2.0 04/08/16 12:00 84 04/08/16 11:29 Room Air 04/08/16 11:29 Room Air 04/08/16 08:59 77 135/72 04/08/16 08:26 97.2 77 18 135/72 99 Nasal Cannula 2.0 04/08/16 08:00 84 04/08/16 07:21 Nasal Cannula 2.0 28 04/08/16 07:21 84 20 100 Nasal Cannula 2.0 28 04/08/16 07:12 78 20 100 Nasal Cannula 2.0 28 04/08/16 07:10 100 Nasal Cannula 2.0 28 04/08/16 06:02 96.8 78 20 142/81 97 Room Air 04/08/16 04:30 96.8 78 20 142/81 97 Room Air 04/08/16 03:52 79 04/08/16 02:24 Nasal Cannula 04/08/16 02:23 Nasal Cannula 04/07/16 23:45 92 04/07/16 23:15 99 22 100 Nasal Cannula 2.0 28 04/07/16 23:07 99 24 97 Nasal Cannula 2.0 28 04/07/16 20:00 98.1 87 18 121/68 100 Nasal Cannula 2.0 04/07/16 19:52 86 04/07/16 19:49 98 22 100 Nasal Cannula 2.0 28 04/07/16 19:44 Nasal Cannula 2.0 28 04/07/16 19:43 98 Nasal Cannula 2.0 28 04/07/16 19:41 96 24 98 Nasal Cannula 2.0 28 Intake and Output 04/07/16 04/08/16 19:00 07:00 Intake Total 790 ml 55 ml Output Total 700 ml 1135 ml Balance 90 ml -1080 ml Intake Oral 680 ml IV Total 110 ml 55 ml Output Urine Total 700 ml 1135 ml # Voids 2 General Appearance: cachetic HEENT: normocephalic Respiratory/Chest: chest wall non-tender Cardiovascular: normal peripheral pulses, normal rate Abdomen: normal bowel sounds, soft, non tender Extremities: no cyanosis 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 Laboratory Tests 04/08/16 06:30: White Blood Count 8.0, Red Blood Count 4.54L, Hemoglobin 12.2L, Hematocrit 37.7L , Mean Corpuscular Volume 83, Mean Corpuscular Hemoglobin 26.9L, Mean Corpuscular Hemoglobin Concent 32.4, Red Cell Distribution Width 14.8, Platelet Count 214, Mean Platelet Volume 9.8, Neutrophils (%) (Auto) 65.4, Lymphocytes (% ) (Auto) 21.6, Monocytes (%) (Auto) 8.2, Eosinophils (%) (Auto) 3.6H, Basophils (%) (Auto) 1.2, Sodium Level 136, Potassium Level 4.6, Chloride Level 95L, Carbon Dioxide Level 32H, Anion Gap 9, Blood Urea Nitrogen 26H, Creatinine 1.6H , Estimat Glomerular Filtration Rate 43.6, Glucose Level 248H, Hemoglobin A1c 9.3H, Uric Acid 5.1, Calcium Level 9.0, Phosphorus Level 3.1, Magnesium Level 1.9, Total Bilirubin 0.5, Gamma Glutamyl Transpeptidase 61, Aspartate Amino Transf (AST/SGOT) 17, Alanine Aminotransferase (ALT/SGPT) 22, Alkaline Phosphatase 82, C-Reactive Protein, Quantitative 1.2H, Pro-B-Type Natriuretic Peptide 72, Total Protein 6.6, Albumin 3.4L, Globulin 3.2, Albumin/Globulin Ratio 1.0, Triglycerides Level 79, Cholesterol Level 157, LDL Cholesterol 81, HDL Cholesterol 60, Cholesterol/HDL Ratio 2.6L, Thyroid Stimulating Hormone (TSH ) 2.060 Current Medications Medications (Trade) Dose Ordered Sig/Nallely Route PRN Reason Start Time Stop Time Status Last Admin Dose Admin Acetaminophen (Tylenol) 650 mg Q4H PRN ORAL fever 04/05/16 06:45 05/05/16 06:44 Albuterol/ Ipratropium (DuoNeb 0.5-3(2.5)mg/3ml) 3 ml Q4H PRN HHN dyspnea 04/05/16 06:45 04/10/16 06:44 04/05/16 17:12 Albuterol/ Ipratropium (DuoNeb 0.5-3(2.5)mg/3ml) 3 ml Q4HRT HHN 04/07/16 19:00 04/12/16 18:59 04/08/16 15:58 Amlodipine Besylate (Norvasc) 5 mg DAILY ORAL 04/05/16 09:00 05/05/16 08:59 04/08/16 08:59 Aspirin (Ecotrin) 81 mg DAILY ORAL 04/05/16 09:00 05/05/16 08:59 04/08/16 08:58 Atorvastatin Calcium (Lipitor) 40 mg BEDTIME ORAL 04/05/16 21:00 05/05/16 20:59 04/07/16 20:35 Cefepime HCl/ Dextrose (Maxipime/D5W) 55 ml @ 110 mls/hr EVERY 12 HOURS IVPB 04/06/16 10:30 04/13/16 10:29 04/08/16 08:59 Cetirizine HCl (ZyrTEC) 10 mg DAILY ORAL 04/07/16 09:00 05/07/16 08:59 04/08/16 08:59 Clonidine HCl (Catapres) 0.1 mg Q4H PRN ORAL sbp more than 160 04/05/16 06:45 05/05/16 06:44 Dextrose (Dextrose 50%) STAT PRN IV Hypoglycemia 04/05/16 06:45 05/05/16 06:44 Heparin Sodium (Porcine) (Heparin 5000 units/ml) 5,000 units EVERY 12 HOURS SUBQ 04/05/16 09:00 05/05/16 08:59 04/08/16 09:06 Insulin Aspart (NovoLOG) BEFORE MEALS AND HS SUBQ 04/05/16 11:30 05/05/16 11:29 04/08/16 11:44 Lorazepam (Ativan 2mg/ml 1ml) 0.5 mg Q4H PRN IV For Anxiety 04/05/16 06:45 04/12/16 06:44 Methylprednisolone Sodium Succinate (Solu-MEDROL) 30 mg DAILY IVP 04/08/16 09:00 05/08/16 08:59 04/08/16 08:58 Morphine Sulfate (Morphine Sulfate) 2 mg Q4H PRN IVP severe pain 7-10 04/05/16 06:45 04/12/16 06:44 Nitroglycerin (Ntg) 0.4 mg Q5M X 3 DOSES PRN SL Prn Chest Pain 04/05/16 06:45 05/05/16 06:44 Ondansetron HCl (Zofran) 4 mg Q6H PRN IVP Nausea & Vomiting 04/05/16 06:45 05/05/16 06:44 Oxycodone/ Acetaminophen (Percocet 5-325) 1 tab Q4H PRN ORAL For Pain 04/05/16 06:45 04/12/16 06:44 04/08/16 06:26 Pantoprazole (Protonix) 40 mg DAILY ORAL 04/05/16 09:00 05/05/16 08:59 04/08/16 08:59 Polyethylene Glycol (Miralax) 17 gm DAILYPRN PRN ORAL Constipation 04/05/16 07:30 05/05/16 07:29 04/07/16 08:32 Promethazine HCl/ Codeine 5 ml 5 ml Q4H PRN ORAL For Cough 04/06/16 06:45 05/06/16 06:44 Temazepam (Restoril) 15 mg HSPRN PRN ORAL Insomnia 04/05/16 06:45 04/12/16 06:44 04/07/16 23:53 Theophylline (Jd-Dur) 100 mg EVERY 12 HOURS ORAL 04/05/16 09:00 05/05/16 08:59 04/08/16 08:59 JOANIE HERRERA Apr 08, 2016 16:06
[2016-04-08] MEDS ORDERED: Tubing IV Secondary IV ONE (19:34)
[2016-04-08] MEDS ORDERED: D5 1/2NS 1000ml IV ONE (19:34)
[2016-04-08] MEDS ORDERED: NS 275ml ONE (19:34)
--- NOTE | 2016-04-09 11:45 | Discharge Summary ---
Discharge Summary Hospital Course Date of Admission Apr 05, 2016 at 02:20 Date of Discharge Apr 08, 2016 at 19:35 Admitting Diagnosis Congestive heart failure CINTHIA Mathews is a 65 year old male who was admitted on Apr 05, 2016 at 02:20 for Congestive Heart Failure Hospital Course dc summary dictated # [id number] Discharge Medications Continued Medications: Albuterol Sulfate* (Albuterol Sulfate Mdi*) 8.5 Gm Hfa.aer.ad 2 PUFF INH Q6H, #1 EA Amlodipine Besylate* (Amlodipine Besylate*) 5 Mg Tablet 5, #30 Aspirin* (Aspir-Low*) 81 Mg Tablet.dr 81 MG ORAL DAILY, TAB Atorvastatin Calcium* (Lipitor*) 40 Mg Tablet 40 MG ORAL BEDTIME, #30 TAB 0 Refills Bisacodyl* (Dulcolax*) 5 Mg Tablet.dr 10 MG ORAL THREE TIMES A WEEK, #10 TAB 0 Refills Budesonide (Pulmicort) 0.5 Mg/2 Ml Ampul.neb Unknown Dose IH, EA Insulin Glargine (Lantus) 100 Unit/1 Ml Insuln.pen 0 SUBQ BEDTIME, #1 EA 0 Refills Lisinopril* (Zestril*) 10 Mg Tab 5 MG ORAL DAILY, #30 TAB Losartan Potassium (Losartan Potassium) 25 Mg Tablet 25 MG PO, TAB Metoprolol Tartrate* (Metoprolol Tartrate*) 25 Mg Tablet 25 MG ORAL BID, TAB Montelukast Sodium* (Singulair*) 10 Mg Tablet 10 MG ORAL BEDTIME, TAB Oxycodone Hcl/Acetaminophen 5-325* (Oxycodone-Acetaminophen 5-325*) 1 Each Tablet 1 TAB ORAL Q4H PRN for For Pain, TAB 0 Refills Pantoprazole* (Protonix*) 40 Mg Tabec 40 MG ORAL DAILY, #30 TAB Prochlorperazine Maleate* (Compazine*) 5 Mg Tablet 5 MG ORAL Q6H, #30 TAB 0 Refills Discharge Condition Upon Discharge: stable Discharge Disposition Patient was discharged to Home (01) Discharge Diagnoses: Riaz (Vanchtein)Juliet NP Apr 09, 2016 11:45
--- NOTE | 2016-04-09 23:48 | Discharge Summary 2 SIG ---
DATE OF ADMISSION: 04/05/2016 DATE OF DISCHARGE: 04/08/2016 REASON FOR ADMISSION: 65-year-old male with a history of chronic obstructive pulmonary disease and sarcoidosis, hypertension, and recent back surgery (few weeks ago ), presented with cough and vomiting. He developed severe shortness of breath and diaphoresis, and was unable to breathe. His called paramedics. Paramedics reported the patient was in tripod position while waiting for paramedics. Blood pressure was severely elevated. He was diaphoretic. He was given nitroglycerin and placed on BiPAP. He denied any chest pain. T he blood pressure was 253/122. He was tachypneic with respiratory rate of 36 and tachycardic with a heart rate of 154, but afebrile. Pulse oximetry was 100 % on BiPAP. EKG revealed sinus tachycardia. No ischemic changes. Chest x-ray revealed no effusion and no pneumothorax, but indicated bilateral hilar infiltrates, possible pneumonia. The patient was with leukocytosis, white blood count- 20.3. Hemoglobin and hematocrit were stable. ABG upon admission done on the BiPAP with 12/5 settings and with FiO2 30% was stable. The patient presented with evidence of acute renal failure with BUN of 31 and creatinine 1.9, and elevated anion gap of 19. Blood sugar was 289. Lactic acid was within normal limits. Elevated transaminases: AST 48, ALT 43, and alkaline phosphatase 135. CK elevated at 194. CK-MB elevated 7.2. Troponin negative. Pro BNP 25. UA showed no evidence of urinary tract infection, but revealed 3+ protein and 3+ glucose. The patient was started on antibiotic and transferred to telemetry for further management. ADMITTING DIAGNOSES: 1. Acute hypoxemic respiratory failure. 2. Possible pneumonia. 3. Acute renal failure. 4. Hypertensive emergency. 5. Supraventricular tachycardia. 6. Proteinuria. HOSPITAL STAY: The patient was admitted to telemetry. Cardiology consult was requested. Supplemental oxygen and pulmonary toilet provided as needed. The patient was started on IV steroids, which were tapered and discontinued prior to discharge. Sputum culture was negative. The patient was on empiric antibiotics. Blood culture negative. Initial chest x-ray revealed nonspecific bilateral perihilar basilar interstitial disease. Subsequently CT of the chest was done, due to the history of sarcoidosis, which revealed multiple small pulmonary nodules. Extensive mediastinal lymphadenopathy/nonspecific, likely related to history of sarcoidosis. Recommended to repeat CT chest in three months. Followup chest x-ray revealed no acute disease. Cardiology followed. Echocardiogram revealed preserved ejection fraction of 65% to 70% and right ventricular systolic pressure of 14. Blood pressure was managed with beta-rangel and calcium channel rangel, stable. Aspirin and statin continued. Creatinine was trending down and then up again, last creatinine - 1.6 per [employer] Helper was involved in care of this patient. 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 Blood sugar was managed with sliding scale of insulin, was stable. DVT and GI prophylaxis provided. LFT trended down to normal. The case was discussed with Dr. Nolan who is the patient's primary care physician. The patient was stable for discharge. DISCHARGE DIAGNOSES: 1. Acute hypoxemic hypercapnic respiratory failure requiring BiPAP/resolved. 2. Possible pneumonia versus bronchitis. 3. Pulmonary nodules. 4. Extensive mediastinal lymphadenopathy, consistent with history of sarcoidosis. 5. Sarcoidosis. 6. Acute kidney injury/acute tubular necrosis on chronic renal insufficiency (due to the diabetic nephropathy). 7. Hypertensive urgency with profound elevated blood pressure, resolved. 8. Acute asthma exacerbation. 9. Diabetes mellitus. 10. History of coronary artery disease. 11. Elevated LFTs -resolved. 12. History of testicular cancer. DISCHARGE MEDICATIONS: See medication reconciliation list. DISCHARGE INSTRUCTIONS: The patient was discharged home. Follow up with the primary medical doctor next week. Tata Donato M.D. I have been assigned to dictate discharge summary on this account and I was not involved in the patient's management. Juliet Mello (V anchtein), N.P. DR: IVONE JOB#: [id number] CC: MORENITA
== END 2016-04-08 19:35 | disposition home or self-care (01) | DRG 189 ==
LOC: EDBD 00:44 → EMR 00:58 → 2E 02:20 → EDBEDREQ 03:39 → EDBEDREQSVC 03:39 → EDBEDREQ 04:01 → 2E 06:12
PROC: 5A0935Z Assistance with Respiratory Ventilation, Less than 24 Consecutive Hours (ICD-10-PCS; principal; 2016-04-05)
DX: J96.01 Acute respiratory failure with hypoxia (principal); N17.0 Acute kidney failure with tubular necrosis; D86.9 Sarcoidosis, unspecified; J45.901 Unspecified asthma with (acute) exacerbation; E11.21 Type 2 diabetes mellitus with diabetic nephropathy; I47.1 Supraventricular tachycardia; I16.0 Hypertensive urgency; I25.10 Atherosclerotic heart disease of native coronary artery without angina pectoris; I25.2 Old myocardial infarction; M19.90 Unspecified osteoarthritis, unspecified site; J96.02 Acute respiratory failure with hypercapnia; R91.1 Solitary pulmonary nodule; Z98.61 Coronary angioplasty status; Z85.47 Personal history of malignant neoplasm of testis
CPT/HCPCS: 36415; 36600; 71010; 71250; 80048; 80053; 80061; 80300; 81003; 82550; 82553; 82803; 82962; 82977; 83036; 83605; 83735; 83880; 84100; 84300; 84443; 84484; 84550; 85007; 85025; 85610; 85730; 86140; 87040; 87070; 87205; 89050; 93005; 93306; 94640; 94664; 94760; J1815; J7620